=== PATIENT | female | born 1935 | race Caucasian/White ===

== ENCOUNTER 2017-11-04 11:22 | Inpatient (IN) | payer MEDICARE ==
[2017-11-04 11:30] VITALS: BMI 25.6
[2017-11-04 12:54] LABS: BASO # 0.1 K/uL (0.0-0.2); BASO % 0.9 % (0.0-2.0); EOS # 0.1 K/uL (0.0-0.7); EOS % 2.1 % (0.0-4.0); HEMOGLOBIN 11.8 g/dL (11.0-16.0); LYMPH # 1.4 K/uL (1.0-4.3); LYMPH % 20.7 % (20.0-40.0); MEAN CELL VOLUME 86.2 fL (81.0-99.0); MEAN CORPUSCULAR HEMOGLOBIN 28.9 pg (27.0-31.0); MEAN CORPUSCULAR HGB CONC 33.6 g/dL (33.0-37.0); MEAN PLATELET VOLUME 8.6 fL (7.2-11.7); MONO # 0.5 K/uL (0.0-0.8); MONO % 6.6 % (0.0-10.0); NEUT # 4.9 K/uL (1.8-7.0); NEUT % 69.7 % (50.0-75.0); RBC 4.08 Mil/uL (3.80-5.20); RED CELL DISTRIBUTION WIDTH 16.1 % (11.5-14.5)
[2017-11-04 13:07] LABS: ALBUMIN 4.1 g/dL (3.5-5.0); CALCIUM 9.3 mg/dl (8.6-10.4); GFR AFRICAN-AMERICAN > 60; GFR NON-AFRICAN AMERICAN 60
[2017-11-04 13:10] LABS: ALT/SGPT 16 U/L (9-52); AST/SGOT 35 U/L (14-36); BLOOD UREA NITROGEN 21 mg/dL (7-17)
[2017-11-04 13:21] LABS: B-TYPE NATRIURETIC PEPTIDE 87.8 pg/mL (0-900); CK-MB 0.52 ng/mL (0.0-3.38)
--- NOTE | 2017-11-04 13:26 | C.PDOC ---
History Of Present Illness 82 y/o female presents to ED with c/o cough, congestion and "low grade fever" for 1 week. Patient states she has used home remedies with no improvement. TOday daughter notes pt has a decrease appetite associated with weakness which prompted visit to ED. Pt states she sometimes feels a "wheeze" and has a headache. Also notes she has right eye pain unchanged from Cataract surgery on 10/2017. Patient denies chest pain, sob, nausea, vomiting or any other complaints at this time. Time Seen by Provider: 11/04/17 12:09 Chief Complaint (Nursing): Cough, Cold, Congestion History Per: Patient History/Exam Limitations: no limitations Onset/Duration Of Symptoms: Days Current Symptoms Are (Timing): Still Present Associated Symptoms: Fever, Cough, Nasal Congestion Past Medical History Reviewed: Historical Data, Nursing Documentation, Vital Signs Vital Signs: Last Vital Signs Temp 98.6 F 11/04/17 17:10 Pulse 86 11/04/17 17:10 Resp 20 11/04/17 17:10 BP 171/94 H 11/04/17 17:10 Pulse Ox 97 11/04/17 17:15 - Medical History PMH: Arthritis, CHF, Dementia, HTN, Hypercholesterolemia, Hyperlipidemia, Seizures Surgical History: Cholecystectomy - [facility] Procedures EXERCISE TRMT MUSCULOSK LOW BACK/LE W ASSIST EQUIP (07/23/15) GAIT TRAINING/AMBULAT TREATMENT USING ASSIST EQUIPMENT (07/23/15) GROOMING/PERSONAL HYGIENE TREATMENT USING ASSIST EQUIPMENT (07/23/15) Family History: States: No Known Family Hx - Social History Hx Tobacco Use: No Hx Alcohol Use: No Hx Substance Use: No - Immunization History Hx Tetanus Toxoid Vaccination: Yes Hx Influenza Vaccination: Yes Hx Pneumococcal Vaccination: Yes Review Of Systems Constitutional: Positive for: Fever. Negative for: Chills ENT: Positive for: Nose Congestion Cardiovascular: Negative for: Chest Pain Respiratory: Positive for: Cough. Negative for: Shortness of Breath Gastrointestinal: Negative for: Nausea, Vomiting Skin: Negative for: Rash Physical Exam - Physical Exam Appears: Non-toxic, No Acute Distress, Other (Occasional dry cough) Skin: Warm, Dry, No Rash Head: Atraumatic, Normacephalic Eye(s): bilateral: EOMI, Other ((+) b/l haziness , decreased reactivity) Ear(s): Bilateral: Normal Nose: Normal Oral Mucosa: Moist Throat: Normal, No Erythema, No Exudate Neck: Normal ROM, Supple Chest: Symmetrical Cardiovascular: Rhythm Regular Respiratory: Normal Breath Sounds, No Accessory Muscle Use, No Rales, No Rhonchi , No Wheezing Gastrointestinal/Abdominal: Soft, No Tenderness, No Guarding, No Rebound Neurological/Psych: Oriented x3, Normal Speech, Normal Cognition ED Course And Treatment - Laboratory Results Result Diagrams: 11/04/17 12:51 11/04/17 12:51 ECG: Interpreted By Me, Viewed By Me ECG Rhythm: Sinus Rhythm, Nonspecific Changes Rate From EC (BPM) O2 Sat by Pulse Oximetry: 97 (RA) Pulse Ox Interpretation: Normal - Other Rad CXR X-Ray: Viewed By Me, Read By Radiologist Interpretation: PROCEDURE: CHEST RADIOGRAPH, 1 VIEW. HISTORY: SOB. COMPARISON: Comparison chest 07/11/2016. FINDINGS: LUNGS: Poor inspiration with low lung volumes, crowded bronchovascular markings and mild bibasilar atelectasis. PLEURA: No pneumothorax or pleural fluid seen. CARDIOVASCULAR: . Heart appears mildly enlarged. . Apparent manager monitoring device overlying the left cardiac border. OSSEOUS STRUCTURES: No significant abnormalities. VISUALIZED UPPER ABDOMEN: Normal. OTHER FINDINGS: None. IMPRESSION: No active disease. - CT Scan/US CT head w/o contrast Other Rad Studies (CT/US): Read By Radiologist, Radiology Report Reviewed CT/US Interpretation: PROCEDURE: CT HEAD WITHOUT CONTRAST. HISTORY: R/O Bleed. COMPARISON: Comparison made with CT scan brain dated 07/11/2016. TECHNIQUE: Axial computed tomography images were obtained through the head/ brain without intravenous contrast. Radiation dose: Total exam DLP = mGy-cm. This CT exam was performed using one or more of the following dose reduction techniques: Automated exposure control, adjustment of the mA and/or kV according to patient size, and/or use of iterative reconstruction technique. FINDINGS: HEMORRHAGE: No acute parenchymal, subarachnoid or extra-axial hemorrhage. BRAIN: Significant diffuse - confluent chronic white matter ischemic changes again seen extending peripherally into the deep and subcortical white matter both cerebral hemispheres. The there also appear to be a more discrete scattered deep and subcortical white matter as well as bilateral basal nuclei chronic lacunar-type infarcts. . There are scattered small bilateral cerebellar lacunar type infarcts also noted Note the possibility of a small hyperacute infarct not excluded. Clinical correlation with history recommended. Exuberant and dense bilateral basal ganglia calcifications again noted. Moderate to significant central volume loss evidenced by disproportionate enlargement of the ventricles compared the sulci. Vascular calcifications are present. VENTRICLES: Unremarkable. No hydrocephalus. CALVARIUM: Unremarkable. PARANASAL SINUSES: Moderate mucosal thickening within the ethmoid air complex extending superiorly into the frontal sinus. There is also mild to moderate mucosal thickening seen in the right maxillary antrum with questionable small fluid level right maxillary antrum. There is also near complete opacification right chamber sphenoid sinus. MASTOID AIR CELLS: Unremarkable as visualized. No inflammatory changes. OTHER FINDINGS: Re- demonstrated are changes of left-sided cataract surgery. IMPRESSION: No acute intracranial hemorrhage. Significant diffuse - confluent chronic white matter ischemic changes again seen extending peripherally into the deep and subcortical white matter both cerebral hemispheres. The there also appear to be a more discrete scattered deep and subcortical white matter as well as bilateral basal nuclei chronic lacunar-type infarcts. . There are scattered small bilateral cerebellar lacunar type infarcts also noted Note the possibility of a small hyperacute infarct not excluded. Clinical correlation with history recommended. Wake. Moderate to significant central volume loss evidenced by disproportionate enlargement of the ventricles compared the sulci. Progress Note: ECG ordered. IV fluids and Azithromycin administered. D/w , instructed patient to be admitted under Dr. Mercer. Case d/w Dr. Mercer agreed with plan of admission. Disposition - Disposition Disposition: HOSPITALIZED Disposition Time: 15:00 Condition: STABLE - Clinical Impression Clinical Impression: Bronchitis, Dehydration, Headache - PA / COMMERCIAL OR INSTITUTIONAL CLEANER / Resident Statement MD/DO has reviewed & agrees with the documentation as recorded. - Scribe Statement The provider has reviewed the documentation as recorded by the Afia Erickson All medical record entries made by the Afia were at my direction and personally dictated by me. I have reviewed the chart and agree that the record accurately reflects my personal performance of the history, physical exam, medical decision making, and the department course for this patient. I have also personally directed, reviewed, and agree with the discharge instructions and disposition.
--- NOTE | 2017-11-04 14:00 | CT ---
PROCEDURE: CT HEAD WITHOUT CONTRAST. HISTORY: R/O Bleed COMPARISON: Comparison made with CT scan brain dated 07/11/2016 TECHNIQUE: Axial computed tomography images were obtained through the head/brain without intravenous contrast. Radiation dose: Total exam DLP = mGy-cm. This CT exam was performed using one or more of the following dose reduction techniques: Automated exposure control, adjustment of the mA and/or kV according to patient size, and/or use of iterative reconstruction technique. FINDINGS: HEMORRHAGE: No acute parenchymal, subarachnoid or extra-axial hemorrhage. BRAIN: Significant diffuse - confluent chronic white matter ischemic changes again seen extending peripherally into the deep and subcortical white matter both cerebral hemispheres. The there also appear to be a more discrete scattered deep and subcortical white matter as well as bilateral basal nuclei chronic lacunar-type infarcts. . There are scattered small bilateral cerebellar lacunar type infarcts also noted Note the possibility of a small hyperacute infarct not excluded. Clinical correlation with history recommended. Exuberant and dense bilateral basal ganglia calcifications again noted. Moderate to significant central volume loss evidenced by disproportionate enlargement of the ventricles compared the sulci. Vascular calcifications are present. VENTRICLES: Unremarkable. No hydrocephalus. CALVARIUM: Unremarkable. PARANASAL SINUSES: Moderate mucosal thickening within the ethmoid air complex extending superiorly into the frontal sinus. There is also mild to moderate mucosal thickening seen in the right maxillary antrum with questionable small fluid level right maxillary antrum. There is also near complete opacification right chamber sphenoid sinus. MASTOID AIR CELLS: Unremarkable as visualized. No inflammatory changes. OTHER FINDINGS: Re- demonstrated are changes of left-sided cataract surgery. IMPRESSION: No acute intracranial hemorrhage. Significant diffuse - confluent chronic white matter ischemic changes again seen extending peripherally into the deep and subcortical white matter both cerebral hemispheres. The there also appear to be a more discrete scattered deep and subcortical white matter as well as bilateral basal nuclei chronic lacunar-type infarcts. . There are scattered small bilateral cerebellar lacunar type infarcts also noted Note the possibility of a small hyperacute infarct not excluded. Clinical correlation with history recommended. Wake Moderate to significant central volume loss evidenced by disproportionate enlargement of the ventricles compared the sulci.
--- NOTE | 2017-11-04 14:35 | RAD ---
PROCEDURE: CHEST RADIOGRAPH, 1 VIEW HISTORY: SOB COMPARISON: Comparison chest 07/11/2016. FINDINGS: LUNGS: Poor inspiration with low lung volumes, crowded bronchovascular markings and mild bibasilar atelectasis PLEURA: No pneumothorax or pleural fluid seen. CARDIOVASCULAR: . Heart appears mildly enlarged. . Apparent cardiac cath tech device overlying the left cardiac border. OSSEOUS STRUCTURES: No significant abnormalities. VISUALIZED UPPER ABDOMEN: Normal. OTHER FINDINGS: None. IMPRESSION: No active disease.
[2017-11-04] MEDS ORDERED: Azithromycin 500mg/250ML NS 500 MG/250 ML BAG IV SCH (15:00)
[2017-11-04] MEDS ORDERED: Sodium Chloride 0.9% 1,000 ML ONE (15:09)
[2017-11-04] MEDS: Sodium Chloride 0.9% 1,000 ML IV SCH (15:14)
[2017-11-04 16:45] LABS: SQUAMOUS EPITHIAL 2 /hpf (0-5); URINE BACTERIA OCC (<OCC); URINE BILIRUBIN NEGATIVE (NEGATIVE); URINE BLOOD NEGATIVE (NEGATIVE); URINE CLARITY Clear (Clear); URINE COLOR Colorless (YELLOW); URINE GLUCOSE (UA) NORMAL (Normal); URINE LEUKOCYTE ESTERASE TRACE Leu/uL (Negative); URINE PROTEIN NEGATIVE (NEGATIVE); URINE UROBILINOGEN NORMAL mg/dL (0.2-1.0)
[2017-11-04 18:07] VITALS: RESP 20
--- NOTE | 2017-11-04 19:25 | CP.PCM.HP ---
History of Present Illness - History of Present Illness History of Present Illness: 82 years old female brought by the family to the ED complaining of generalized weakness this AM. She has been having a productive cough for the past 7 days, with poor appetite. In the ED a CT scan of the head did not show any acute change. A CXR did not show any infiltrate. She was given IVF and IV Zithromax with some improvement of her weakness. She is known to have a NIDDM, a seizures disorders, a HPTN, a CAD, a senile dementia, a hypercholesterolemia. Present on Admission - Present on Admission Any Indicators Present on Admission: No Review of Systems - EENT Nose/Mouth/Throat: Nasal Discharge - Respiratory Respiratory: Cough, Wheezing - Musculoskeletal Musculoskeletal: Muscle Weakness - Neurological Neurological: Confusion, Weakness Past Patient History - Infectious Disease Hx of Infectious Diseases: None - Tetanus Immunizations Tetanus Immunization: Unknown - Past Medical History & Family History Past Medical History?: Yes - Past Social History Smoking Status: Never Smoked Alcohol: None Home Situation {Lives}: With Family Domestic Violence: Negative - CARDIAC Hx Congestive Heart Failure: Yes Hx Hypercholesterolemia: Yes Hx Hypertension: Yes - PULMONARY Hx Respiratory Disorders: No - NEUROLOGICAL Hx Dementia: Yes Hx Seizures: Yes - HEENT Hx HEENT Problems: Yes Hx Cataracts: Yes (Bilat eyes) Hx Glaucoma: Yes - RENAL Hx Chronic Kidney Disease: No - ENDOCRINE/METABOLIC Hx Endocrine Disorders: Yes Hx Diabetes Mellitus Type 2: Yes - HEMATOLOGICAL/ONCOLOGICAL Hx Blood Disorders: No - INTEGUMENTARY Hx Dermatological Problems: No - MUSCULOSKELETAL/RHEUMATOLOGICAL Hx Arthritis: Yes - GASTROINTESTINAL Hx Gastrointestinal Disorders: No - GENITOURINARY/GYNECOLOGICAL Hx Genitourinary Disorders: No - PSYCHIATRIC Hx Substance Use: No - SURGICAL HISTORY Hx Cholecystectomy: Yes - ANESTHESIA Hx Anesthesia: Yes Meds Allergies/Adverse Reactions: Allergies Allergy/AdvReac Type Severity Reaction Status Date / Time No Known Allergies Allergy Verified 11/04/17 11:29 Physical Exam - Constitutional Appears: No Acute Distress, Confused - Head Exam Head Exam: NORMAL INSPECTION - Eye Exam Eye Exam: Normal appearance - ENT Exam ENT Exam: Normal Exam - Neck Exam Neck exam: Positive for: Normal Inspection - Respiratory Exam Respiratory Exam: Clear to Auscultation Bilateral, NORMAL BREATHING PATTERN - Cardiovascular Exam Cardiovascular Exam: REGULAR RHYTHM, Systolic Murmur - GI/Abdominal Exam GI & Abdominal Exam: Normal Bowel Sounds, Soft - Rectal Exam Rectal Exam: Deferred - Extremities Exam Extremities exam: Positive for: normal inspection - Back Exam Back exam: NORMAL INSPECTION - Neurological Exam Neurological exam: Alert - Psychiatric Exam Psychiatric exam: Anxious - Skin Skin Exam: Dry, Intact, Normal Color, Warm Results - Vital Signs Recent Vital Signs: Last Vital Signs Temp 98.6 F 11/04/17 17:10 Pulse 86 11/04/17 17:10 Resp 20 11/04/17 17:10 BP 171/94 H 11/04/17 17:10 Pulse Ox 97 11/04/17 18:27 - Labs Result Diagrams: 11/04/17 12:51 11/04/17 12:51 Labs: Laboratory Results - last 24 hr 11/04/17 11/04/17 11/04/17 12:51 12:51 16:39 WBC 7.0 RBC 4.08 Hgb 11.8 Hct 35.2 MCV 86.2 MCH 28.9 MCHC 33.6 RDW 16.1 H Plt Count 241 MPV 8.6 Neut % (Auto) 69.7 Lymph % (Auto) 20.7 Ransom % (Auto) 6.6 Eos % (Auto) 2.1 Baso % (Auto) 0.9 Neut # (Auto) 4.9 Lymph # (Auto) 1.4 Ransom # (Auto) 0.5 Eos # (Auto) 0.1 Baso # (Auto) 0.1 Sodium 144 Potassium 4.7 Chloride 105 Carbon Dioxide 25 Anion Gap 19 BUN 21 H Creatinine 0.9 Est GFR ( Amer) > 60 Est GFR (Non-Af Amer) 60 Random Glucose 98 Calcium 9.3 Total Bilirubin 0.7 AST 35 ALT 16 Alkaline Phosphatase 131 H Total Creatine Kinase 46 CK-MB (Mass) 0.52 Troponin I < 0.0120 NT-Pro-B Natriuret Pep 87.8 Total Protein 8.3 Albumin 4.1 Globulin 4.2 H Albumin/Globulin Ratio 1.0 Urine Color Colorless Urine Clarity Clear Urine pH 6.0 Ur Specific [place] 1.005 Urine Protein Negative Urine Glucose (UA) Normal Urine Ketones Negative Urine Blood Negative Urine Nitrate Negative Urine Bilirubin Negative Urine Urobilinogen Normal Ur Leukocyte Esterase Trace Urine WBC (Auto) 8 H Urine RBC (Auto) 1 Ur Squamous Epith Cells 2 Ur Transition Epith Cell < 1 Urine Bacteria Occ H Assessment & Plan (1) Dehydration Assessment and Plan: IVF Status: Acute (2) Bronchitis Assessment and Plan: IV Zithromax. Status: Acute (3) Non-insulin dependent type 2 diabetes mellitus Assessment and Plan: To continue Glipizide. Status: Acute Decision To Admit - Pt Status Changed To: Hospital Disposition Of: Observation - . Bed Request Type: Regular Admitting Physician: Jonh Mercer
[2017-11-04] MEDS ORDERED: guaiFENesin 200 mg/10 ml Syrup UD PO PRN (19:31)
[2017-11-04] MEDS: (Novolog) Insulin Aspart, Recombinant 100 u/ml 10 ml vial SC SCH (21:39)
[2017-11-04] MEDS: TRAVATAN Z 0.004% EYE DROPS OU SCH (21:40)
[2017-11-05] MEDS: Sodium Chloride 0.9% 1,000 ML IV SCH ×3 (00:17→15:11)
[2017-11-05] MEDS: (Novolog) Insulin Aspart, Recombinant 100 u/ml 10 ml vial SC SCH ×4 (08:04→21:18)
[2017-11-05] MEDS: Enoxaparin 40 mg Syringe SC SCH (11:07)
[2017-11-05] MEDS: DUREZOL 0.05% OD SCH ×3 (11:09→17:05)
--- NOTE | 2017-11-05 17:57 | CP.PCM.PN ---
Subjective - Date & Time of Evaluation Date of Evaluation: 11/05/17 Time of Evaluation: 17:54 - Subjective Subjective: Patient has episodes of hypoglycemia. Will discontinue Glipizide. Objective - Vital Signs/Intake and Output Vital Signs (last 24 hours): Temp Pulse Resp BP Pulse Ox 98.0 F 78 20 170/84 H 98 11/05/17 15:00 11/05/17 15:00 11/05/17 15:00 11/05/17 15:00 11/05/17 15:00 Intake and Output: 11/05/17 11/05/17 06:59 18:59 Intake Total 1530 1200 Balance 1530 1200 - Medications Medications: Current Medications Acetaminophen (Tylenol 325mg Tab) 650 mg PO Q6 PRN PRN Reason: Pain, moderate (4-7) Amlodipine Besylate (Norvasc) 2.5 mg PO DAILY [facility] Last Admin: 11/05/17 11:07 Dose: 2.5 mg Aspirin (Aspirin Chewable) 81 mg PO DAILY [facility] Last Admin: 11/05/17 11:07 Dose: 81 mg Docusate Sodium (Colace) 100 mg PO BID [facility] Last Admin: 11/05/17 17:04 Dose: 100 mg Donepezil HCl (Aricept) 10 mg PO HS [facility] Last Admin: 11/04/17 21:23 Dose: 10 mg Ezetimibe (Zetia) 10 mg PO DAILY [facility] Last Admin: 11/05/17 11:07 Dose: 10 mg Enoxaparin Sodium (Lovenox) 40 mg SC DAILY [facility] Last Admin: 11/05/17 11:07 Dose: 40 mg Glipizide (Glucotrol) 5 mg PO BID [facility] Last Admin: 11/05/17 17:05 Dose: Not Given Guaifenesin (Robitussin) 200 mg PO Q6H PRN PRN Reason: Cough and congestion Home Med (Patient's Own Drops) 1 drop OD TID [facility] Last Admin: 11/05/17 17:05 Dose: 1 drop Home Med (Patient's Own Drops) 1 drop OU HS [facility] Last Admin: 11/04/17 21:40 Dose: 1 drop Sodium Chloride (Sodium Chloride 0.9%) 1,000 mls @ 100 mls/hr IV .Q10H [facility] Last Admin: 11/05/17 15:11 Dose: 100 mls/hr Azithromycin (Zithromax 500mg In Ns Addvantage) 500 mg in 250 mls @ 166.667 mls /hr IV STAT [facility] PRN Reason: Protocol Last Admin: 11/04/17 15:29 Dose: 166.667 mls/hr Levetiracetam (Keppra) 500 mg PO BID [facility] Last Admin: 11/05/17 17:04 Dose: 500 mg Losartan Potassium (Cozaar) 100 mg PO DAILY [facility] Last Admin: 11/05/17 11:06 Dose: 100 mg - Labs Labs: 11/04/17 12:51 11/04/17 12:51 - Constitutional Appears: No Acute Distress, Chronically Ill - Head Exam Head Exam: NORMOCEPHALIC - Eye Exam Eye Exam: Normal appearance - ENT Exam ENT Exam: Normal Exam - Neck Exam Neck Exam: Normal Inspection - Respiratory Exam Respiratory Exam: Clear to Ausculation Bilateral, NORMAL BREATHING PATTERN - Cardiovascular Exam Cardiovascular Exam: Irregular Rhythm - GI/Abdominal Exam GI & Abdominal Exam: Soft, Normal Bowel Sounds - Rectal Exam Rectal Exam: Deferred - Exam Exam: NORMAL INSPECTION - Extremities Exam Extremities Exam: Normal Inspection - Back Exam Back Exam: NORMAL INSPECTION - Neurological Exam Neurological Exam: Alert, Awake - Psychiatric Exam Psychiatric exam: Anxious - Skin Skin Exam: Dry, Intact, Normal Color, Warm Assessment and Plan (1) Dehydration Status: Acute (2) Bronchitis Status: Acute (3) Non-insulin dependent type 2 diabetes mellitus Assessment & Plan: Patient had episodes of hypoglycemia. To discontinue Glipizide Status: Acute
[2017-11-05] MEDS: TRAVATAN Z 0.004% EYE DROPS OU SCH (21:15)
[2017-11-06] MEDS: (Novolog) Insulin Aspart, Recombinant 100 u/ml 10 ml vial SC SCH ×4 (08:25→21:34)
[2017-11-06] MEDS: Enoxaparin 40 mg Syringe SC SCH (09:34)
[2017-11-06] MEDS: DUREZOL 0.05% OD SCH ×3 (09:35→17:08)
[2017-11-06] MEDS: TRAVATAN Z 0.004% EYE DROPS OU SCH (21:27)
[2017-11-07] MEDS: (Novolog) Insulin Aspart, Recombinant 100 u/ml 10 ml vial SC SCH ×2 (08:20→17:05)
[2017-11-07] MEDS: Enoxaparin 40 mg Syringe SC SCH (10:07)
[2017-11-07] MEDS: DUREZOL 0.05% OD SCH ×2 (10:08→17:16)
[2017-11-07 11:06] LABS: BASO % 0.7 % (0.0-2.0); EOS # 0.3 K/uL (0.0-0.7); EOS % 4.8 % (0.0-4.0); HEMOGLOBIN 12.2 g/dL (11.0-16.0); LYMPH # 1.1 K/uL (1.0-4.3); LYMPH % 20.1 % (20.0-40.0); MEAN CELL VOLUME 85.3 fL (81.0-99.0); MEAN CORPUSCULAR HEMOGLOBIN 29.4 pg (27.0-31.0); MEAN CORPUSCULAR HGB CONC 34.4 g/dL (33.0-37.0); MEAN PLATELET VOLUME 8.7 fL (7.2-11.7); MONO # 0.4 K/uL (0.0-0.8); MONO % 8.3 % (0.0-10.0); NEUT # 3.5 K/uL (1.8-7.0); NEUT % 66.1 % (50.0-75.0); NRBC % 0.1 % (0.0-2.0); RBC 4.16 Mil/uL (3.80-5.20); WHITE BLOOD COUNT 5.3 K/uL (4.8-10.8)
[2017-11-07 11:09] LABS: CALCIUM 8.7 mg/dl (8.6-10.4)
--- NOTE | 2017-11-07 15:37 | CP.PCM.PN ---
Subjective - Date & Time of Evaluation Date of Evaluation: 11/07/17 Time of Evaluation: 15:38 - Subjective Subjective: Alert, awake, no sob or chest pains, NAD. Objective - Vital Signs/Intake and Output Vital Signs (last 24 hours): Temp Pulse Resp BP Pulse Ox 98.2 F 65 20 144/82 95 11/07/17 08:01 11/07/17 08:01 11/07/17 08:01 11/07/17 13:45 11/07/17 08:01 Intake and Output: 11/07/17 11/07/17 06:59 18:59 Intake Total 270 500 Balance 270 500 - Medications Medications: Current Medications Acetaminophen (Tylenol 325mg Tab) 650 mg PO Q6 PRN PRN Reason: Pain, moderate (4-7) Amlodipine Besylate (Norvasc) 10 mg PO DAILY [facility] Last Admin: 11/07/17 10:07 Dose: 10 mg Aspirin (Aspirin Chewable) 81 mg PO DAILY [facility] Last Admin: 11/07/17 10:07 Dose: 81 mg Docusate Sodium (Colace) 100 mg PO BID [facility] Last Admin: 11/07/17 10:07 Dose: 100 mg Donepezil HCl (Aricept) 10 mg PO HS [facility] Last Admin: 11/06/17 21:27 Dose: 10 mg Ezetimibe (Zetia) 10 mg PO DAILY [facility] Last Admin: 11/07/17 10:07 Dose: 10 mg Enoxaparin Sodium (Lovenox) 40 mg SC DAILY [facility] Last Admin: 11/07/17 10:07 Dose: 40 mg Guaifenesin (Robitussin) 200 mg PO Q6H PRN PRN Reason: Cough and congestion Home Med (Patient's Own Drops) 1 drop OD TID [facility] Last Admin: 11/07/17 10:08 Dose: 1 drop Home Med (Patient's Own Drops) 1 drop OU HS [facility] Last Admin: 11/06/17 21:27 Dose: 1 drop Insulin Aspart (Novolog) 0 unit SC [facility] PRN Reason: Protocol Last Admin: 11/07/17 08:20 Dose: Not Given Levetiracetam (Keppra) 500 mg PO BID [facility] Last Admin: 11/07/17 10:07 Dose: 500 mg Losartan Potassium (Cozaar) 100 mg PO DAILY [facility] Last Admin: 11/07/17 10:07 Dose: 100 mg - Labs Labs: 11/07/17 10:44 11/07/17 10:44 Assessment and Plan - Assessment and Plan (Free Text) Assessment: Patient is seen and examined, alert, oriented, sitting out of bed in the chair. Denies sob or chest pains, no wheezing. Blood pressure 144/70 now, no acute distress. Seen by DR Mercer, cleared for discharge home today. Advised to continue present meds and follow up in the office in 1 week.
--- NOTE | 2017-11-07 15:44 | PCM.HF ---
Heart Failure Core Measure - Heart Failure Ejection Fraction: 40 % or Greater (EF 65-70%) PHAN Inhibitor Prescribed: No Contraindication/Reason for not providing: ON COZAAR Beta-Shanique Prescribed: None Contraindication/Reason for not providing: EF >40% Angiotensin II Receptor Shanique Prescribed: Yes AnticoagulationTherapy for Atrial Fibrillation/Atrialflutter: No Contraindication/Reason for not providing: NO AFIB Aldosterone Antagonist Prescribed: No Contraindication/Reason for not providing: EF >40% Hydralazine Nitrate Prescribed: No Contraindication/Reason for not providing: EF >40% Implantable Cardioverter Defibrillator Therapy: No Contraindication/Reason for not providing: EF>40% Cardiac Resynchronization Therapy Prescribed: No Contraindication/Reason for not providing: not indicated - Follow up Will be discharged to: Home Follow Up Date (must be within 7 days from discharge): 11/14/17 Follow Up Time: 09:00
--- NOTE | 2017-11-07 16:04 | CARD ---
APPROVED REPORT EKG Measurement Heart [id number] <Conclusion> Sinus rhythm with 1st degree AV block Left axis deviation Moderate voltage criteria for LVH, may be normal variant Possible Lateral infarct, age undetermined Abnormal ECG
[2017-11-07 16:35] VITALS: BP 154/80; PULSE 73; TEMP 98.1; O2SAT 96
--- NOTE | 2017-11-07 19:12 | CP.PCM.PN ---
Subjective - Date & Time of Evaluation Date of Evaluation: 11/07/17 Time of Evaluation: 19:09 - Subjective Subjective: Patient has no complaint. BP: 144/88 Afebrile. No more hypoglycemic episodes. Will discharge home on Metformin 875 mg PO BID, Losartan 100 mg PO qd and Amlodipine 10 mg PO qd, and discontinue Glipizide. Objective - Vital Signs/Intake and Output Vital Signs (last 24 hours): Temp Pulse Resp BP Pulse Ox 98.1 F 73 20 154/80 H 96 11/07/17 16:00 11/07/17 16:00 11/07/17 16:00 11/07/17 16:00 11/07/17 16:00 Intake and Output: 11/07/17 11/08/17 18:59 06:59 Intake Total 500 Balance 500 - Labs Labs: 11/07/17 10:44 11/07/17 10:44 - Constitutional Appears: No Acute Distress, Confused - Head Exam Head Exam: NORMAL INSPECTION - Eye Exam Eye Exam: Normal appearance - ENT Exam ENT Exam: Normal Exam - Neck Exam Neck Exam: Normal Inspection - Respiratory Exam Respiratory Exam: Clear to Ausculation Bilateral - Cardiovascular Exam Cardiovascular Exam: REGULAR RHYTHM - GI/Abdominal Exam GI & Abdominal Exam: Soft, Normal Bowel Sounds - Rectal Exam Rectal Exam: Deferred - Extremities Exam Extremities Exam: Normal Inspection - Back Exam Back Exam: NORMAL INSPECTION - Neurological Exam Neurological Exam: Alert, Awake, Normal Gait - Psychiatric Exam Psychiatric exam: Anxious - Skin Skin Exam: Dry, Intact, Normal Color, Warm Assessment and Plan (1) Dehydration Status: Resolved (2) Bronchitis Status: Resolved (3) Non-insulin dependent type 2 diabetes mellitus Status: Chronic
--- NOTE | 2017-11-08 17:37 | CP.PCM.PN ---
Subjective - Date & Time of Evaluation Date of Evaluation: 11/07/17 Time of Evaluation: 11:00 - Subjective Subjective: Awake, alert, no sob or chest pains, NAD. Objective - Vital Signs/Intake and Output Vital Signs (last 24 hours): Temp Pulse Resp BP Pulse Ox 98.1 F 73 20 154/80 H 96 11/07/17 16:00 11/07/17 16:00 11/07/17 16:00 11/07/17 16:00 11/07/17 16:00 - Labs Labs: 11/07/17 10:44 11/07/17 10:44 Assessment and Plan - Assessment and Plan (Free Text) Assessment: Patient is seen and examined. Alert, awake, no sob or chest pains. Seen by DR Mercer , advised to discharge home on present meds. Patient is advised to follow up with PMD in 1 week.
== END 2017-11-07 18:20 | disposition home or self-care (01) | DRG 203 ==
LOC: C.ER 11:22 → C.9E 14:49 → C.3T 15:54 → OBSVTOIN 11-05 16:52
PROVIDERS: ADMIT Internal Medicine Cardiovascular Disease; ATTEND Internal Medicine Cardiovascular Disease
DX: J20.9 Acute bronchitis, unspecified (principal); E86.0 Dehydration; E11.649 Type 2 diabetes mellitus with hypoglycemia without coma; I11.9 Hypertensive heart disease without heart failure; I51.7 Cardiomegaly; I25.10 Atherosclerotic heart disease of native coronary artery without angina pectoris; G40.909 Epilepsy, unspecified, not intractable, without status epilepticus; F03.90 Unspecified dementia, unspecified severity, without behavioral disturbance, psychotic disturbance, mood disturbance, and anxiety; M19.90 Unspecified osteoarthritis, unspecified site; E78.5 Hyperlipidemia, unspecified; E78.00 Pure hypercholesterolemia, unspecified; Z79.84 Long term (current) use of oral hypoglycemic drugs; Z98.41 Cataract extraction status, right eye

== ENCOUNTER 2018-08-27 19:12 | Inpatient (IN) | payer MEDICARE ==
[2018-08-27 19:13] VITALS: BMI 25.6
--- NOTE | 2018-08-27 20:18 | C.PDOC ---
History Of Present Illness 82 year old female is brought to the ED by her family for evaluation of knee pain and difficulty ambulating. As per family she normally walks with a walker however today for the first time noticed her left leg was almost dragging not able to move it. Patient denies fever, chills, headache, visual changes, CP, SOB, palpitations, bowel incontinence, saddle anesthesia. Time Seen by Provider: 08/27/18 20:18 Chief Complaint (Nursing): Lower Extremity Problem/Injury History Per: Patient, Family History/Exam Limitations: no limitations Onset/Duration Of Symptoms: Days Current Symptoms Are (Timing): Still Present Recent travel outside of the [place]: No Additional History Per: Patient Past Medical History Reviewed: Historical Data, Nursing Documentation, Vital Signs Vital Signs: Last Vital Signs Temp 98.9 F 08/27/18 19:35 Pulse 74 08/27/18 19:35 Resp 20 08/27/18 19:35 BP 184/92 H 08/27/18 19:35 Pulse Ox 95 08/27/18 19:35 - Medical History PMH: Arthritis, CHF, Dementia, HTN, Hypercholesterolemia, Hyperlipidemia, Seizures Denies: Chronic Kidney Disease Surgical History: Cholecystectomy - [facility] Procedures EXERCISE TRMT MUSCULOSK LOW BACK/LE W ASSIST EQUIP (07/23/15) GAIT TRAINING/AMBULAT TREATMENT USING ASSIST EQUIPMENT (07/23/15) GROOMING/PERSONAL HYGIENE TREATMENT USING ASSIST EQUIPMENT (07/23/15) Family History: States: No Known Family Hx - Social History Hx Tobacco Use: No Hx Alcohol Use: No Hx Substance Use: No - Immunization History Hx Tetanus Toxoid Vaccination: Yes Hx Influenza Vaccination: Yes Hx Pneumococcal Vaccination: Yes Review Of Systems Constitutional: Negative for: Fever, Chills Cardiovascular: Negative for: Chest Pain Respiratory: Negative for: Shortness of Breath Gastrointestinal: Negative for: Nausea, Vomiting, Abdominal Pain Musculoskeletal: Positive for: Leg Pain Skin: Negative for: Rash Neurological: Negative for: Weakness, Numbness, Headache, Dizziness Physical Exam - Physical Exam Appears: Non-toxic, No Acute Distress Skin: Warm, Dry Head: Normacephalic Eye(s): bilateral: Normal Inspection, PERRL, EOMI Oral Mucosa: Moist Teeth: Edentulous Neck: Supple Chest: Symmetrical Cardiovascular: Rhythm Regular Respiratory: No Rales, No Rhonchi, No Wheezing Gastrointestinal/Abdominal: Soft, No Tenderness, No Guarding, No Rebound Extremity: Tenderness (left knee, mild), No Deformity, No Swelling Extremity: Left: Painful To Bear Weight, Unable To Bear Weight, Bilateral: Pelvis-Stable Pulses: Left Dorsalis Pedis: Normal, Right Dorsalis Pedis: Normal Neurological/Psych: Oriented x3, Other (neg babinsky) Gait: Unable To Assess ED Course And Treatment - Laboratory Results Result Diagrams: 08/27/18 20:47 08/27/18 20:47 ECG: Interpreted By Me, Viewed By Me ECG Rhythm: Sinus Rhythm (68), 1st Degree HB, Nonspecific Changes O2 Sat by Pulse Oximetry: 95 (On RA) Pulse Ox Interpretation: Normal - Radiology CXR: Interpreted by Me, Viewed By Me CXR Interpretation: Yes: Other (loop recorder present, unchanged from 11/04/17). No: Infiltrates, Fracture, Pnemothorax - CT Scan/US CT head Other Rad Studies (CT/US): Read By Radiologist, Radiology Report Reviewed CT/US Interpretation: EXAM: CT Head without Intravenous Contrast. CLINICAL HISTORY: R/o bleed. TECHNIQUE: Axial computed tomography images of the head/brain without intravenous contrast. 0.00 mGy-cm. COMPARISON: Comparison is made to previous examination dated 11/04/2017. FINDINGS: BRAIN. No acute intraparenchymal hemorrhage. No mass lesion. No CT evidence for acute territorial infarct. No midline shift or extra-axial collections. There is mild diffuse age-appropriate cerebral/cerebellar atrophy. There are bilateral periventricular and subcortical white matter hypolucencies compatible with mild chronic microvascular disease. Dense calcification is again seen within the basal ganglia bilaterally; usually an idiopathic finding. VENTRICLES: No hydrocephalus. VASCULAR: Atherosclerotic vascular plaquing is seen within the left vertebral artery and carotid siphons bilaterally. ORBITS: The orbits are unremarkable. SINUSES AND MASTOIDS: The paranasal sinuses and mastoid air cells are clear. BONES: No fracture. SOFT TISSUES: Unremarkable. IMPRESSION: 1. No acute intracranial abnormality. 2. Mild diffuse age appropriate cerebral/cerebellar atrophy. 3. Mild chronic microvascular disease. 4. Dense calcification in the basal ganglia bilaterally; usually an idiopathic finding. 5. Atherosclerotic vascular plaquing within the left vertebral artery and bilateral carotid siphons. 6. No significant interval change. . Electronically signed on Aug 27, 2018 10:27:28 PM EST by: Jonh Tena M.D., JOSE Certified By ABR & CBCCT. Fellowship Trained MRI and CT Specialist. CT hip Other Rad Studies (CT/US): Read By Radiologist, Radiology Report Reviewed CT/US Interpretation: EXAM: CT left Hip, without IV contrast. CLINICAL HISTORY: Left hip pain. TECHNIQUE: Axial images were acquired through the left hip without IV contrast. Reformatted images were reviewed. 0.00 mGy-cm. COMPARISON: None provided. FINDINGS: BONES: No acute fracture or aggressive appearing osseous lesion. JOINTS: No dislocation. The joint spaces are normal. SOFT TISSUES: The soft tissues are unremarkable. Extensive atherosclerotic vascular plaquing is noted. A small 1.2 cm calcified degenerating uterine fibroid is noted in the posterior fundus. Incidental note is made of diverticulosis coli in the visualized lower descending and sigmoid colon. Additionally, there is subtle pericolonic haziness in this region suspicious for acute diverticulitis. IMPRESSION: 1. No acute osseous abnormality. 2. Incidental discovery of acute diverticulitis in the lower descending-upper sigmoid colon. 3. Extensive atherosclerotic vascular plaquing. 4. Incidental discovery is made of a 1.2 cm calcified degenerating uterine fibroid in the right posterior fundus. . Electronically signed on Aug 27, 2018 10:40:16 PM EST by: Jonh Tena M.D., JOSE Certified By ABR & CBCCT. Fellowship Trained MRI and CT Specialist. CT lower extrem Other Rad Studies (CT/US): Read By Radiologist, Radiology Report Reviewed CT/US Interpretation: EXAM: CT left Knee, without IV contrast. CLINICAL HISTORY: Left knee pain. TECHNIQUE: Axial images were acquired through the left knee without IV contrast. Reformatted images were reviewed. 0.00 mGy-cm. COMPARISON: None provided. FINDINGS: BONES: No acute fracture or aggressive appearing osseous lesion. JOINTS: No dislocation. Moderate arthritic narrowing is seen within the medial compartment. Marginal osteophyte formation arises from the medial tibial plateau. A 1.0 cm degenerative arthritic cyst is seen in the medial tibial plateau extending to the articular surface. These findings are compatible with primary osteoarthritis. SOFT TISSUES: The soft tissues are unremarkable. Extensive atherosclerotic vascular plaquing is noted within the femoral, popliteal arteries and trifurcation vessels. IMPRESSION: 1. No acute osseous abnormality. 2. Moderate primary osteoarthritic changes noted in the medial compartment. 3. Extensive atherosclerotic vascular plaquing is present. . Electronically signed on Aug 27, 2018 10:40:23 PM EST by: Jonh Tena M.D., MBA Certified By ABR & CBCCT. Fellowship Trained MRI and CT Specialist Progress Note: Plan: - CT lower extrem. - CT head. - CT pelvis. - Labs. - EKG. - CXR. - UA NIHSS Stroke Scale - Date/Time Evaluation Performed Date Performed: 08/27/18 Time Performed: 20:00 When Was NIHSS Performed: Baseline - How Severe is the Stoke Level of Consciousness: 0=Alert LOC to Questions: 0=Both comments correct LOC to commands: 0=Obeys both correctly Best Gaze: 0=Normal Visual: 0=No visual loss Facial: 0=Normal Motor Arm - Left: 0=No drift Motor Arm - Right: 0=No drift Motor Leg - Left: 1=Drift before 5 sec Motor Leg - Right: 0=No drift Limb Ataxia: 0=Absent Sensory: 0=Normal Best Language: 0=No aphasia Dysarthia: 0=Normal articulation Extinction & Inattention (Neglect): 0=Normal, no object Score: 1 Disposition Discussed With : Jonh Mercer Comment: accepted the pt on his service and took over the care at 10:52 PM Doctor Will See Patient In The: Hospital Counseled Patient/Family Regarding: Studies Performed, Diagnosis - Disposition Disposition: HOSPITALIZED Disposition Time: 20:18 Condition: FAIR Forms: [facility] (Kiswahili) - POA Present On Arrival: Poor Glycemic Control - Clinical Impression Clinical Impression: Lumbar radiculopathy, Arthritis, Joint pain, Ambulatory dysfunction - Scribe Statement The provider has reviewed the documentation as recorded by the Scribe Kal Daigle All medical record entries made by the Scribe were at my direction and personally dictated by me. I have reviewed the chart and agree that the record accurately reflects my personal performance of the history, physical exam, medical decision making, and the department course for this patient. I have also personally directed, reviewed, and agree with the discharge instructions and disposition. Decision To Admit - Pt Status Changed To: Hospital Disposition Of: Inpatient - Admit Certification Admit to Inpatient:: After my assessment, the patient will require hospitalization for at least two midnights. This is because of the severity of symptoms shown, intensity of services needed, and/or the medical risk in this patient being treated as an outpatient. - InPatient: Physician Admission Certification: I certify that this patient requires 2 or more midnights of care for the following reason:: After my assessment, the patient will require hospitalization for at least two midnights. This is because of the severity of symptoms shown, intensity of services needed, and/or the medical risk in this patient being treated as an outpatient. - . Bed Request Type: Regular Admitting Physician: Jonh Mercer Patient Diagnosis: Lumbar radiculopathy, Arthritis, Joint pain, Ambulatory dysfunction
[2018-08-27 20:49] LABS: BASO # 0.1 K/uL (0.0-0.2); BASO % 1.3 % (0.0-2.0); EOS # 0.2 K/uL (0.0-0.7); EOS % 3.7 % (0.0-4.0); HEMOGLOBIN 11.7 g/dL (11.0-16.0); LYMPH # 1.4 K/uL (1.0-4.3); LYMPH % 21.3 % (20.0-40.0); MEAN CELL VOLUME 88.6 fL (81.0-99.0); MEAN CORPUSCULAR HEMOGLOBIN 28.9 pg (27.0-31.0); MEAN CORPUSCULAR HGB CONC 32.6 g/dL (33.0-37.0); MEAN PLATELET VOLUME 8.6 fL (7.2-11.7); MONO # 0.5 K/uL (0.0-0.8); MONO % 7.8 % (0.0-10.0); NEUT # 4.4 K/uL (1.8-7.0); NEUT % 65.9 % (50.0-75.0); NRBC % 0.1 % (0.0-2.0); RBC 4.06 Mil/uL (3.80-5.20); RED CELL DISTRIBUTION WIDTH 15.7 % (11.5-14.5); WHITE BLOOD COUNT 6.6 K/uL (4.8-10.8)
[2018-08-27 21:02] LABS: ALB/GLOB RATIO 1.4 (1.0-2.1); ALT/SGPT 15 U/L (9-52); AST/SGOT 23 U/L (14-36); BLOOD UREA NITROGEN 27 mg/dL (7-17); CALCIUM 8.8 mg/dl (8.6-10.4); GFR NON-AFRICAN AMERICAN 53
[2018-08-27 21:08] LABS: PROTHROMBIN TIME 10.6 SECONDS (9.7-12.2)
[2018-08-28 06:35] LABS: FREE T4 0.88 ng/dL (0.78-2.19)
[2018-08-28] MEDS: (Novolog) Insulin Aspart, Recombinant 100 u/ml 10 ml vial SC SCH ×4 (07:36→21:37)
--- NOTE | 2018-08-28 08:06 | CT ---
Date of service: 08/27/2018 PROCEDURE: CT HEAD WITHOUT CONTRAST. HISTORY: Headache. Evaluate for hemorrhage. COMPARISON: None available. TECHNIQUE: Axial computed tomography images were obtained through the head/brain without intravenous contrast. Radiation dose: Total exam DLP = 922.16 mGy-cm. This CT exam was performed using one or more of the following dose reduction techniques: Automated exposure control, adjustment of the mA and/or kV according to patient size, and/or use of iterative reconstruction technique. FINDINGS: HEMORRHAGE: No intracranial hemorrhage. BRAIN: No mass effect or edema. Scattered focal lucencies in the subcortical and periventricular white matter suggestive for severe chronic microvascular ischemic change. Dense bilateral basal ganglia calcifications. Diffuse generalized parenchymal atrophy. Persistent focal hypodensities in the bilateral cerebellum; right greater than left suggestive for chronic infarcts. Punctate left caudate head lacunar infarct. VENTRICLES: Prominent secondary to diffuse generalized parenchymal atrophy. CALVARIUM: Unremarkable. PARANASAL SINUSES: Mild mucosal thickening of the ethmoid air cells. MASTOID AIR CELLS: Unremarkable as visualized. No inflammatory changes. OTHER FINDINGS: Intracranial arterial calcifications. IMPRESSION: Severe chronic microvascular ischemic changes. Dense bilateral basal ganglia calcifications. Diffuse generalized parenchymal atrophy. Chronic cerebellar infarcts. Punctate left caudate head lacunar infarct. If symptoms persists, consider correlation with MRI. A preliminary report was generated at 10:27 p.m. on 08/27/[address] Jonh Tena from [employer]
[2018-08-28] MEDS ORDERED: LUTEIN PO SCH (10:00)
[2018-08-28] MEDS ORDERED: [UNRECOGNIZED DRUG - OTHER] PO SCH (10:00)
[2018-08-28] MEDS ORDERED: CHOLECALCIFEROL PO SCH (10:00)
[2018-08-28] MEDS ORDERED: MULTIVIT MIN PO SCH (10:00)
[2018-08-28] MEDS ORDERED: LYCOPEN PO SCH (10:00)
[2018-08-28] MEDS: Enoxaparin 40 mg Syringe SC SCH (10:06)
--- NOTE | 2018-08-28 10:39 | CT ---
CT left hip HISTORY: Hip pain. COMPARISON: None available. Technique: Multiple contiguous axial images were performed through the left hip without the use of intravenous contrast. Subsequently, sagittal and coronal reformatted images were obtained. This CT exam was performed using one or more of the following dose reduction techniques: Automated exposure control, adjustment of the mA and/or kV according to patient size, and/or use of iterative reconstruction technique. Findings: Moderate to severe narrowing of the left hip joint space with subchondral sclerosis and mild osteophytosis. No evidence of acute displaced fracture or dislocation. Limited evaluation of the remainder of the bony pelvis demonstrates no evidence of acute displaced fracture or dislocation. Mild productive change at the pubic symphysis. Vascular calcifications. Multiple calcified fibroid lesions in the uterus. Distended urinary bladder. Colonic diverticulosis. At the level of the proximal sigmoid colon, there is some mild adjacent mesenteric fat stranding which may represent a mild and or early acute diverticulitis. Clinical correlation. Impression: 1. Degenerative changes of the left hip as described above. If pain persists, consider correlation with MRI. 2. Colonic diverticulosis with mild mesenteric fat stranding adjacent to some diverticuli at the level of the proximal sigmoid colon which may represent a mild and or early acute diverticulitis. Clinical correlation. 3. Calcified fibroid uterus. Additional findings as above. A preliminary report was generated at 10:40 pm on 08/27/[address] Jonh Tena from [employer].
--- NOTE | 2018-08-28 11:12 | CT ---
CT left knee HISTORY: Knee pain. Comparison: None available. Technique: Multiple contiguous axial images were performed through left knee without the use of intravenous contrast. Subsequently, sagittal and coronal reformatted images were obtained. This CT exam was performed using one or more of the following dose reduction techniques: Automated exposure control, adjustment of the mA and/or kV according to patient size, and/or use of iterative reconstruction technique. Findings: Severe medial compartment joint space narrowing with subchondral sclerosis. Prominent subchondral cysts and or intraosseous ganglion within the medial proximal tibia at the articular surface measuring 9 and 10 millimeters respectively. Suggestion of some osteochondral change with a 7 millimeter osteochondral abnormality along the anterior lateral femoral condyle on series 602, image 80 and series 3, image 51 with adjacent sclerosis. Though less likely underlying stress injury at this level cannot be excluded. Correlation with MRI is recommended for further evaluation if clinically indicated. Lateral subluxation of the patella. Vascular calcifications. Moderate patellofemoral joint space narrowing with subchondral sclerosis. Trace suprapatellar joint effusion. Impression: 1. Suggestion of some osteochondral change with a 7 millimeter osteochondral abnormality along the anterior lateral femoral condyle on series 602, image 80 and series 3, image 51 with adjacent sclerosis. Though less likely underlying stress injury at this level cannot be excluded. Correlation with MRI is recommended for further evaluation if clinically indicated. 2. Severe medial compartment joint space narrowing of the femorotibial joint space with subchondral sclerosis. Prominent subchondral cysts and or intraosseous ganglion within the medial proximal tibia at the articular surface measuring 9 and 10 millimeters respectively. 3. Lateral subluxation of the patella. 4. Vascular calcifications. 5. Moderate patellofemoral joint space narrowing with subchondral sclerosis. 6. Trace suprapatellar joint effusion. A preliminary report was generated at 10:40 p.m. on 08/27/[address] Jonh Tena from [employer]. This case was placed in the PA review folder.
--- NOTE | 2018-08-28 11:28 | CARD ---
APPROVED REPORT Date of service: 08/27/2018 EKG Measurement Heart [id number] <Conclusion> Sinus rhythm with 1st degree AV block Left axis deviation Moderate voltage criteria for LVH, may be normal variant Abnormal ECG
--- NOTE | 2018-08-28 12:09 | RAD ---
Date of service: 08/27/2018 PROCEDURE: CHEST RADIOGRAPH, 1 VIEW HISTORY: SOB COMPARISON: 11/04/2017. FINDINGS: LUNGS: There are low lung volumes. The lungs are clear. There is bibasilar atelectasis. PLEURA: No pneumothorax or pleural effusion. CARDIOVASCULAR: The heart is normal in size. There are aortic atherosclerotic calcifications present. A loop recorder overlies the left lower thorax. OSSEOUS STRUCTURES: Within normal limits for the patient's age. VISUALIZED UPPER ABDOMEN: Normal. OTHER FINDINGS: Surgical clips in the right upper quadrant are related to prior cholecystectomy. IMPRESSION: No active pulmonary disease.Low lung volumes may be related to poor inspiratory effort. The
[2018-08-28] MEDS ORDERED: (Novolog) Insulin Aspart, Recombinant 100 u/ml 10 ml vial ONE (12:12)
--- NOTE | 2018-08-28 19:25 | CP.PCM.HP ---
History of Present Illness - History of Present Illness History of Present Illness: This is an 82 yo female who is complaining of inability to walk for the past few days because of weakness of the left leg, pain of the left knee and left hip. She denies any fall, any loss of weight, any headache. She is known to have a hypertension, a NIDDM, a cholelithiasis, a seizures disorder, a hypercholesterolemia. Ct scan of the head revealed ischemic change with chronic lacunar infarcts of the cerebellum and the left caudate nuclei. CT scan of the left knee and left hip disclosed severe degenerative joint disease. A CXR was essentially negative. CMP, CBC, TSH, HgbA1C were within normal limits. Present on Admission - Present on Admission Any Indicators Present on Admission: No Review of Systems - Musculoskeletal Musculoskeletal: Arthralgias, Muscle Weakness Additional comments: Weakness of the left leg for the past few days, and pain of the left knee and le ft hip on walking. Past Patient History - Infectious Disease Hx of Infectious Diseases: None - Tetanus Immunizations Tetanus Immunization: Unknown - Past Medical History & Family History Past Medical History?: Yes - Past Social History Smoking Status: Never Smoked Alcohol: None Drugs: Denies Home Situation {Lives}: With Family Domestic Violence: Negative - CARDIAC Hx Congestive Heart Failure: Yes Hx Hypercholesterolemia: Yes Hx Hypertension: Yes - PULMONARY Hx Respiratory Disorders: No - NEUROLOGICAL Hx Dementia: Yes Hx Seizures: Yes - HEENT Hx HEENT Problems: Yes Hx Cataracts: Yes (Bilat eyes) Hx Glaucoma: Yes - RENAL Hx Chronic Kidney Disease: No - ENDOCRINE/METABOLIC Hx Diabetes Mellitus Type 2: Yes - HEMATOLOGICAL/ONCOLOGICAL Hx Blood Disorders: No - INTEGUMENTARY Hx Dermatological Problems: No - MUSCULOSKELETAL/RHEUMATOLOGICAL Hx Arthritis: Yes Hx Falls: Yes (2018) - GASTROINTESTINAL Hx Gastrointestinal Disorders: No - GENITOURINARY/GYNECOLOGICAL Hx Genitourinary Disorders: No - PSYCHIATRIC Hx Substance Use: No - SURGICAL HISTORY Hx Cholecystectomy: Yes - ANESTHESIA Hx Anesthesia: Yes Meds Allergies/Adverse Reactions: Allergies Allergy/AdvReac Type Severity Reaction Status Date / Time No Known Allergies Allergy Verified 11/04/17 11:29 Physical Exam - Constitutional Appears: No Acute Distress, Chronically Ill - Head Exam Head Exam: NORMAL INSPECTION - Eye Exam Eye Exam: Normal appearance - ENT Exam ENT Exam: Normal Exam - Neck Exam Neck exam: Positive for: Normal Inspection - Respiratory Exam Respiratory Exam: Clear to Auscultation Bilateral - Cardiovascular Exam Cardiovascular Exam: REGULAR RHYTHM - GI/Abdominal Exam GI & Abdominal Exam: Normal Bowel Sounds, Soft - Rectal Exam Rectal Exam: Deferred - Extremities Exam Extremities exam: Positive for: normal inspection - Back Exam Back exam: NORMAL INSPECTION - Neurological Exam Neurological exam: Abnormal Gait, Alert, CN II-XII Intact, Oriented x3, Reflexes Normal - Psychiatric Exam Psychiatric exam: Anxious - Skin Skin Exam: Dry, Intact, Normal Color, Warm Results - Vital Signs Recent Vital Signs: Last Vital Signs Temp 98.5 F 08/28/18 15:55 Pulse 71 08/28/18 15:55 Resp 20 08/28/18 15:55 BP 145/78 08/28/18 15:55 Pulse Ox 96 08/28/18 15:55 - Labs Result Diagrams: 08/27/18 20:47 08/27/18 20:47 Labs: Laboratory Results - last 24 hr 08/27/18 08/27/18 08/27/18 20:47 20:47 20:47 WBC 6.6 RBC 4.06 Hgb 11.7 Hct 36.0 MCV 88.6 D MCH 28.9 MCHC 32.6 L RDW 15.7 H Plt Count 236 MPV 8.6 Neut % (Auto) 65.9 Lymph % (Auto) 21.3 Leake % (Auto) 7.8 Eos % (Auto) 3.7 Baso % (Auto) 1.3 Neut # (Auto) 4.4 Lymph # (Auto) 1.4 Leake # (Auto) 0.5 Eos # (Auto) 0.2 Baso # (Auto) 0.1 PT 10.6 INR 1.0 APTT 30 Sodium 140 Potassium 4.2 Chloride 107 Carbon Dioxide 25 Anion Gap 13 BUN 27 H Creatinine 1.0 Est GFR ( Amer) > 60 Est GFR (Non-Af Amer) 53 POC Glucose (mg/dL) Random Glucose 119 H D Hemoglobin A1c Calcium 8.8 Total Bilirubin 0.3 AST 23 ALT 15 Alkaline Phosphatase 101 Total Protein 6.9 Albumin 4.0 Globulin 2.9 Albumin/Globulin Ratio 1.4 Free T4 TSH 3rd Generation 08/28/18 08/28/18 08/28/18 06:03 06:03 07:26 WBC RBC Hgb Hct MCV MCH MCHC RDW Plt Count MPV Neut % (Auto) Lymph % (Auto) Leake % (Auto) Eos % (Auto) Baso % (Auto) Neut # (Auto) Lymph # (Auto) Leake # (Auto) Eos # (Auto) Baso # (Auto) PT INR APTT Sodium Potassium Chloride Carbon Dioxide Anion Gap BUN Creatinine Est GFR ( Amer) Est GFR (Non-Af Amer) POC Glucose (mg/dL) 99 Random Glucose Hemoglobin A1c 6.5 Calcium Total Bilirubin AST ALT Alkaline Phosphatase Total Protein Albumin Globulin Albumin/Globulin Ratio Free T4 0.88 TSH 3rd Generation 2.33 08/28/18 08/28/18 12:04 16:21 WBC RBC Hgb Hct MCV MCH MCHC RDW Plt Count MPV Neut % (Auto) Lymph % (Auto) Leake % (Auto) Eos % (Auto) Baso % (Auto) Neut # (Auto) Lymph # (Auto) Leake # (Auto) Eos # (Auto) Baso # (Auto) PT INR APTT Sodium Potassium Chloride Carbon Dioxide Anion Gap BUN Creatinine Est GFR ( Amer) Est GFR (Non-Af Amer) POC Glucose (mg/dL) 227 H 82 Random Glucose Hemoglobin A1c Calcium Total Bilirubin AST ALT Alkaline Phosphatase Total Protein Albumin Globulin Albumin/Globulin Ratio Free T4 TSH 3rd Generation Assessment & Plan (1) Ambulatory dysfunction Assessment and Plan: Secondary to severe DJD of the left knee and left hip. Will ask for a rheumatological evaluation. Try pain medications and PT. Status: Acute Decision To Admit - Pt Status Changed To: Hospital Disposition Of: Inpatient - Admit Certification Admit to Inpatient:: After my assessment, the patient will require hospital ization for at least two midnights. This is because of the severity of symptoms shown, intensity of services needed, and/or the medical risk in this patient being treated as an outpatient. - InPatient: Physician Admission Certification:: After my assessments, the patient requires hospitalization for at least 2 midnights. - . Bed Request Type: Regular Admitting Physician: Jonh Mercer
[2018-08-28 22:41] LABS: SQUAMOUS EPITHIAL 3 /hpf (0-5); URINE BACTERIA RARE (<OCC); URINE BILIRUBIN NEGATIVE (NEGATIVE); URINE BLOOD NEGATIVE (NEGATIVE); URINE CLARITY Hazy (Clear); URINE COLOR Yellow (YELLOW); URINE GLUCOSE (UA) NORMAL (Normal); URINE LEUKOCYTE ESTERASE 1+ Leu/uL (Negative); URINE PROTEIN NEGATIVE (NEGATIVE); URINE UROBILINOGEN NORMAL mg/dL (0.2-1.0)
[2018-08-29] MEDS: (Novolog) Insulin Aspart, Recombinant 100 u/ml 10 ml vial SC SCH ×4 (07:30→22:22)
[2018-08-29] MEDS: Enoxaparin 40 mg Syringe SC SCH (09:21)
[2018-08-29 12:42] LABS: ANTI STREPTOLYSIN O NEGATIVE (NEGATIVE)
[2018-08-29] MEDS: Multiple Vitamins Tab PO SCH (14:43)
--- NOTE | 2018-08-30 07:25 | CON ---
DATE: 08/29/2018 REASON FOR CONSULTATION: Left leg weakness. HISTORY OF PRESENTING ILLNESS: The patient is an 82-year-old female who was brought to the hospital as she was having difficulty with walking. The patient was in [place] over the weekend and there she started to have difficulty with walking. As per daughter, she noticed that her left leg was weaker and she was also slurring with speech. The patient usually walks with a walker without any difficulty. However, the other day, she was dragging her left leg. The patient denies any weakness in her arms. Denies any headache or dizziness. REVIEW OF SYSTEMS: Denies any headache, dizziness, chest pain, shortness of breath, abdominal pain, constipation, diarrhea, dysuria, cough, sputum production. PAST MEDICAL HISTORY: Includes arthritis, CHF, memory loss, hypertension, hyperlipidemia, seizures and chronic kidney disease. PAST SURGICAL HISTORY: Includes cholecystectomy. MEDICATIONS: At home included metformin, Keppra 500 mg b.i.d., amlodipine, losartan, Zetia, Colace, aspirin. ALLERGIES: NO KNOWN DRUG ALLERGIES. SOCIAL HISTORY: The patient denies smoking, use of alcohol or use of any illicit drugs. FAMILY HISTORY: Reviewed and noncontributory to the case. PHYSICAL EXAMINATION: GENERAL: The patient is an elderly pleasant female, lying on the bed, in no acute distress. VITAL SIGNS: Her blood pressure is 151/78, heart rate is 76 per minute, breathing at a rate of 16 per minute, and temperature is 98.3 degrees Fahrenheit. HEENT: Head normocephalic and atraumatic. NECK: Supple. There are no carotid bruits. LUNGS: Clear. CARDIOVASCULAR SYSTEM: S1 and S2 audible. No murmurs. ABDOMEN: Soft and nontender. Bowel sounds are present. NEUROLOGIC: Mental status: The patient is awake and alert. She knows she is in the hospital. She knows the year. She recognizes her children. She follows all simple commands. Cranial nerve examination: Pupils are 2 mm, minimally reactive to light. Visual billings are full. Extraocular movements are intact. There is no facial asymmetry. Palate is upgoing bilaterally and tongue is midline. Motor examination: Tone is normal. Power in the upper extremities is 4/5. Power in the lower extremities is 3-4/5 on the left side and 4-5/5 on the right side. LABORATORY DATA: Labs reviewed show WBC of 6.6, hemoglobin 11.7, hematocrit of 36 and platelets of 236. Sodium 140, potassium 4.2, chloride 107, carbon dioxide 25, BUN of 27, creatinine of 1 and glucose of 119. The patient had a CT scan of the head done, which shows severe chronic microvascular ischemic changes, dense bilateral basal ganglia calcification, chronic cerebellar infarct, punctate left caudate head lacunar infarct. The patient had a CT of the left pelvis, which shows degenerative changes of the left hip, chronic diverticulosis. IMPRESSION: 1. Left lower extremity weakness, possibly secondary to arthritic changes in her hip, rule out any central etiology of possible stroke. 2. Cerebrovascular disease. 3. Gait dysfunction. 4. Seizure disorder. RECOMMENDATIONS: 1. The patient to have MRI of the brain without contrast. 2. The patient to have physical therapy. 3. If the patient's MRI of the brain does show a stroke, then a full stroke workup to be done with carotid Doppler and echocardiogram. 4. The patient to be continued on her Keppra for her underlying seizure disorder. 5. With her underlying seizure disorder, we will discontinue her tramadol as it can lower seizure threshold. 6. Please continue supportive care and other treatment. Thank you for the opportunity to participate in the care of this patient. Danuta Sylvester MD
[2018-08-30] MEDS: (Novolog) Insulin Aspart, Recombinant 100 u/ml 10 ml vial SC SCH ×3 (07:57→18:11)
[2018-08-30] MEDS: Multiple Vitamins Tab PO SCH (09:50)
[2018-08-30] MEDS: Enoxaparin 40 mg Syringe SC SCH (09:50)
[2018-08-30 12:33] LABS: ANA PATTERN NUCLEOLAR
--- NOTE | 2018-08-30 21:13 | CP.PCM.PN ---
Subjective - Date & Time of Evaluation Date of Evaluation: 08/30/18 Time of Evaluation: 21:09 - Subjective Subjective: Review of old chart discloses that the patient had a loop recorder( [place] ) inserted by Dr Delcid in 2015 for recurrent syncopal episodes. Result of the recording unknown at the present time since Dr Delcid is not on staff at [facility] anymore.The patient subsequently had a safe MRI of the head in 2017. Will clear patient for a head MRI since a loop recorder is not a contraindication. Patient was evaluted by Dr Shivani Sylvester and Dr Trujillo. PT ordered. Objective - Vital Signs/Intake and Output Vital Signs (last 24 hours): Temp Pulse Resp BP Pulse Ox 97.8 F 107 H 20 132/86 94 L 08/30/18 15:00 08/30/18 15:00 08/30/18 15:00 08/30/18 15:00 08/30/18 15:00 Intake and Output: 08/30/18 08/31/18 18:59 06:59 Intake Total 600 Output Total 500 Balance 100 - Medications Medications: Current Medications Amlodipine Besylate (Norvasc) 10 mg PO DAILY [facility] Last Admin: 08/30/18 09:50 Dose: 10 mg Aspirin (Aspirin Chewable) 81 mg PO DAILY [facility] Last Admin: 08/30/18 09:50 Dose: 81 mg Docusate Sodium (Colace) 100 mg PO BID [facility] Last Admin: 08/30/18 18:10 Dose: 100 mg Ezetimibe (Zetia) 10 mg PO DAILY [facility] Last Admin: 08/30/18 09:50 Dose: 10 mg Enoxaparin Sodium (Lovenox) 40 mg SC DAILY [facility] Last Admin: 08/30/18 09:50 Dose: 40 mg Ergocalciferol (Drisdol 50,000 Intl Units Cap) 1 cap PO QWK [facility] Insulin Aspart (Novolog) [address] [facility]; Protocol Last Admin: 08/30/18 18:11 Dose: Not Given Levetiracetam (Keppra) 500 mg PO BID [facility] Last Admin: 08/30/18 18:10 Dose: 500 mg Losartan Potassium (Cozaar) 100 mg PO DAILY [facility] Last Admin: 08/30/18 09:50 Dose: 100 mg Metformin HCl (Glucophage) 850 mg PO BID [facility] Last Admin: 02/27/19 18:10 Dose: 850 mg Multivitamins (Hexavitamin) 1 tab PO DAILY [facility] Last Admin: 08/30/18 09:50 Dose: 1 tab - Labs Labs: 08/27/18 20:47 08/27/18 20:47 PT 10.6 SECONDS (9.7-12.2) 08/27/18 20:47 INR 1.0 08/27/18 20:47 APTT 30 SECONDS (21-34) 08/27/18 20:47 - Constitutional Appears: No Acute Distress, Chronically Ill - Head Exam Head Exam: NORMAL INSPECTION - Eye Exam Eye Exam: Normal appearance Pupil Exam: NORMAL ACCOMODATION - ENT Exam ENT Exam: Normal Exam - Neck Exam Neck Exam: Normal Inspection - Respiratory Exam Respiratory Exam: Clear to Ausculation Bilateral, NORMAL BREATHING PATTERN - Cardiovascular Exam Cardiovascular Exam: REGULAR RHYTHM - GI/Abdominal Exam GI & Abdominal Exam: Soft, Normal Bowel Sounds - Rectal Exam Rectal Exam: Deferred - Exam Exam: NORMAL INSPECTION - Extremities Exam Extremities Exam: Normal Inspection - Back Exam Back Exam: NORMAL INSPECTION - Neurological Exam Neurological Exam: Abnormal Gait, Alert, Awake, Oriented x3 - Psychiatric Exam Psychiatric exam: Anxious - Skin Skin Exam: Dry, Intact Assessment and Plan (1) Ambulatory dysfunction Assessment & Plan: For an MRI of the head without contrast and PT. Status: Acute
[2018-08-31] MEDS: (Novolog) Insulin Aspart, Recombinant 100 u/ml 10 ml vial SC SCH ×4 (07:57→21:08)
[2018-08-31] MEDS: Multiple Vitamins Tab PO SCH (09:11)
[2018-08-31] MEDS: Enoxaparin 40 mg Syringe SC SCH (09:11)
--- NOTE | 2018-08-31 12:11 | CP.PCM.CON ---
History of Present Illness - History of Present Illness History of Present Illness: 82-YEAR-OLD female complaining of pain and stiffness in both lower extremities. Patient relates that about 2 weeks ago she began feeling weakness in the left leg with stiffness in both knees. This history inclu lacunar in farcts, arteriosclerotic heart disease and degenerative arthritis. CT scan of both kn was requested. Lab studies demonstrate osteoarthritis. Patient has an DAYLIN positive with a tit which is insignifica in this age group. Suggest patient co physical therapy. Recommend Voltaren gel 3 times a day to both lower extremities. Patient may benefit from intra-articular steroidal injections of both knees. Review of Systems - Constitutional Constitutional: Fatigue, Weakness - Reproductive: Female Reproductive:Female: Post Menopausal - Integumentary Integumentary: Dry Skin Past Patient History - Infectious Disease Hx of Infectious Diseases: None - Tetanus Immunizations Tetanus Immunization: Unknown - Past Medical History & Family History Past Medical History?: Yes - Past Social History Smoking Status: Never Smoked Chewing Tobacco Use: No Cigar Use: No Alcohol: None Drugs: Denies Home Situation {Lives}: With Family Domestic Violence: Negative - CARDIAC Hx Congestive Heart Failure: Yes Hx Hypercholesterolemia: Yes Hx Hypertension: Yes - PULMONARY Hx Respiratory Disorders: No - NEUROLOGICAL Hx Dementia: Yes Hx Seizures: Yes - HEENT Hx HEENT Problems: Yes Hx Cataracts: Yes (Bilat eyes) Hx Glaucoma: Yes - RENAL Hx Chronic Kidney Disease: No - ENDOCRINE/METABOLIC Hx Diabetes Mellitus Type 2: Yes - HEMATOLOGICAL/ONCOLOGICAL Hx Blood Disorders: No - INTEGUMENTARY Hx Dermatological Problems: No - MUSCULOSKELETAL/RHEUMATOLOGICAL Hx Arthritis: Yes - GASTROINTESTINAL Hx Gastrointestinal Disorders: No - GENITOURINARY/GYNECOLOGICAL Hx Genitourinary Disorders: No - PSYCHIATRIC Hx Substance Use: No - SURGICAL HISTORY Hx Cholecystectomy: Yes - ANESTHESIA Hx Anesthesia: Yes Meds Allergies/Adverse Reactions: Allergies Allergy/AdvReac Type Severity Reaction Status Date / Time No Known Allergies Allergy Verified 11/04/17 11:29 - Medications Medications: Current Medications Amlodipine Besylate (Norvasc) 10 mg PO DAILY [facility] Last Admin: 08/31/18 09:10 Dose: 10 mg Aspirin (Aspirin Chewable) 81 mg PO DAILY [facility] Last Admin: 08/31/18 09:11 Dose: 81 mg Docusate Sodium (Colace) 100 mg PO BID [facility] Last Admin: 08/31/18 09:11 Dose: 100 mg Ezetimibe (Zetia) 10 mg PO DAILY [facility] Last Admin: 08/31/18 09:10 Dose: 10 mg Enoxaparin Sodium (Lovenox) 40 mg SC DAILY [facility] Last Admin: 08/31/18 09:11 Dose: 40 mg Ergocalciferol (Drisdol 50,000 Intl Units Cap) 1 cap PO QWK [facility] Insulin Aspart (Novolog) 0 unit SC ACHS [facility]; Protocol Last Admin: 08/31/18 07:57 Dose: Not Given Levetiracetam (Keppra) 500 mg PO BID [facility] Last Admin: 08/31/18 09:11 Dose: 500 mg Losartan Potassium (Cozaar) 100 mg PO DAILY [facility] Last Admin: 08/31/18 09:11 Dose: 100 mg Metformin HCl (Glucophage) 850 mg PO BID [facility] Last Admin: 08/31/18 09:11 Dose: 850 mg Multivitamins (Hexavitamin) 1 tab PO DAILY [facility] Last Admin: 08/31/18 09:11 Dose: 1 tab Physical Exam - Head Exam Head Exam: NORMOCEPHALIC - Eye Exam Eye Exam: Normal appearance Pupil Exam: NORMAL ACCOMODATION - ENT Exam ENT Exam: Normal Exam - Neck Exam Neck exam: Positive for: Normal Inspection - Respiratory Exam Respiratory Exam: NORMAL BREATHING PATTERN - Cardiovascular Exam Cardiovascular Exam: REGULAR RHYTHM - GI/Abdominal Exam GI & Abdominal Exam: Normal Bowel Sounds - Rectal Exam Rectal Exam: Deferred - Exam Exam: NORMAL INSPECTION - Extremities Exam Extremities exam: Positive for: joint swelling - Back Exam Back exam: NORMAL INSPECTION - Neurological Exam Neurological exam: Oriented x3 - Psychiatric Exam Psychiatric exam: Normal Affect Results - Vital Signs Recent Vital Signs: Last Vital Signs Temp 98.0 F 08/31/18 07:12 Pulse 74 08/31/18 07:12 Resp 18 08/31/18 07:12 BP 182/84 H 08/31/18 07:12 Pulse Ox 96 08/31/18 07:12 - Labs Result Diagrams: 08/27/18 20:47 08/27/18 20:47 Labs: Laboratory Results - last 24 hr 08/29/18 08/29/18 08/30/18 07:46 07:46 16:20 POC Glucose (mg/dL) 95 Cycl Citrul Peptide IgG <16 DAYLIN 6 Profile Positive H DAYLIN Titer 1:40 H DAYLIN Pattern Nucleolar H Anti-Streptolysin O Ab Negative 08/30/18 08/31/18 21:12 07:20 POC Glucose (mg/dL) 136 H 104 Cycl Citrul Peptide IgG DAYLIN 6 Profile DAYLIN Titer DAYLIN Pattern Anti-Streptolysin O Ab Assessment & Plan (1) Ambulatory dysfunction Status: Acute (2) Arthritis Status: Acute (3) Joint pain Status: Acute
--- NOTE | 2018-08-31 16:12 | MRI ---
Date of service: 08/31/2018 PROCEDURE: MRI BRAIN WITHOUT CONTRAST HISTORY: Weakness of the left leg. COMPARISON: Noncontrast head CT 08/27/2018. TECHNIQUE: Multiplanar, multisequence MR images of the brain were obtained without intravenous contrast enhancement. FINDINGS: HEMORRHAGE: Marked signal dephasing at the bilateral basal ganglia corresponds to dense calcification identified in prior head CT noted above. No definite intracranial hemorrhage appreciable. DWI: Restricted diffusion at the right external capsule is identified posteriorly indicative of a small acute subacute infarct. BRAIN PARENCHYMA: Good corticomedullary differentiation is seen. Reiterated diffuse cerebral atrophy and chronic microangiopathy. No suspicious extra-axial fluid collection is identified and the midline brain anatomy appears grossly nonfocal as imaged. No mass effect identified. A chronic lacune is identified at the left thalamus as well as bilateral cerebellar hemispheres inferiorly. Additional chronic lacune is seen at the left parieto-occipital junction and left optic radiations at the level of the parietal lobe. VENTRICLES: Unremarkable. No hydrocephalus. CRANIUM: Unremarkable. ORBITS: Evidence suggesting prior left cataract surgery. PARANASAL SINUSES/MASTOIDS: Multifocal sinus disease bilateral ethmoid air cells. VASCULAR SYSTEM: Skull base flow voids intact. OTHER FINDINGS: None. IMPRESSION: 1. Small acute subacute infarct right external capsule posteriorly. 2. No lobar brain infarction appreciated on acute subacute basis or even chronic. 3. Age-appropriate age related neuro degenerative changes. Chronic lacunes as discussed above.
--- NOTE | 2018-08-31 18:09 | CP.PCM.PN ---
Subjective - Date & Time of Evaluation Date of Evaluation: 08/31/18 Time of Evaluation: 18:06 - Subjective Subjective: Patient still complaining of left knee pain and weakness of the left leg. Brain MRI revealed a small subacute/acute infarct of the right external capsule posteriorly, and old, chronic lacunar infarcts of the left thalamus, the cerebellum bilaterally and the left parietal-occipital junction. Objective - Vital Signs/Intake and Output Vital Signs (last 24 hours): Temp Pulse Resp BP Pulse Ox 97.9 F 84 20 163/90 H 98 08/31/18 16:38 08/31/18 16:38 08/31/18 16:38 08/31/18 16:38 08/31/18 16:38 Intake and Output: 08/31/18 08/31/18 06:59 18:59 Intake Total 400 Output Total 300 Balance -300 400 - Medications Medications: Current Medications Amlodipine Besylate (Norvasc) 10 mg PO DAILY [facility] Last Admin: 08/31/18 09:10 Dose: 10 mg Aspirin (Aspirin Chewable) 81 mg PO DAILY [facility] Last Admin: 08/31/18 09:11 Dose: 81 mg Docusate Sodium (Colace) 100 mg PO BID [facility] Last Admin: 08/31/18 17:07 Dose: 100 mg Ezetimibe (Zetia) 10 mg PO DAILY [facility] Last Admin: 08/31/18 09:10 Dose: 10 mg Enoxaparin Sodium (Lovenox) 40 mg SC DAILY [facility] Last Admin: 08/31/18 09:11 Dose: 40 mg Ergocalciferol (Drisdol 50,000 Intl Units Cap) 1 cap PO QWK [facility] Insulin Aspart (Novolog) 0 unit SC ACHS [facility]; Protocol Last Admin: 08/31/18 16:44 Dose: Not Given Levetiracetam (Keppra) 500 mg PO BID [facility] Last Admin: 08/31/18 17:08 Dose: 500 mg Losartan Potassium (Cozaar) 100 mg PO DAILY [facility] Last Admin: 08/31/18 09:11 Dose: 100 mg Metformin HCl (Glucophage) 850 mg PO BID [facility] Last Admin: 08/31/18 17:08 Dose: 850 mg Multivitamins (Hexavitamin) 1 tab PO DAILY [facility] Last Admin: 08/31/18 09:11 Dose: 1 tab - Labs Labs: 08/27/18 20:47 08/27/18 20:47 PT 10.6 SECONDS (9.7-12.2) 08/27/18 20:47 INR 1.0 08/27/18 20:47 APTT 30 SECONDS (21-34) 08/27/18 20:47 - Constitutional Appears: Well, Chronically Ill - Head Exam Head Exam: NORMAL INSPECTION - Eye Exam Eye Exam: Normal appearance - ENT Exam ENT Exam: Normal Exam - Neck Exam Neck Exam: Normal Inspection - Respiratory Exam Respiratory Exam: Clear to Ausculation Bilateral, NORMAL BREATHING PATTERN - Cardiovascular Exam Cardiovascular Exam: REGULAR RHYTHM - GI/Abdominal Exam GI & Abdominal Exam: Soft, Normal Bowel Sounds - Rectal Exam Rectal Exam: Deferred - Extremities Exam Additional comments: Tender left knee. 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 Status: Acute
[2018-09-01] MEDS: (Novolog) Insulin Aspart, Recombinant 100 u/ml 10 ml vial SC SCH ×4 (09:13→21:31)
[2018-09-01] MEDS: Multiple Vitamins Tab PO SCH (10:03)
[2018-09-01] MEDS: Enoxaparin 40 mg Syringe SC SCH (10:03)
--- NOTE | 2018-09-01 21:21 | CP.PCM.PN ---
Subjective - Date & Time of Evaluation Date of Evaluation: 09/01/18 Time of Evaluation: 21:18 - Subjective Subjective: Patient still with weakness of the left leg. Receiving PT. Carotid duplex scan: Minimal heterogenous plaques at both bulbs, with no significant stenosis. EchO: Normal LV systolic function, with grade I diastolic dysfunction. Mild TR with mild pulmonary hypertension. Mild sclerosis of the mitral annulus and aortic root. Awaiting subacute rehab. placement. Objective - Vital Signs/Intake and Output Vital Signs (last 24 hours): Temp Pulse Resp BP Pulse Ox 98.2 F 107 H 18 155/79 H 94 L 09/01/18 15:00 09/01/18 15:00 09/01/18 15:00 09/01/18 15:00 09/01/18 15:00 Intake and Output: 09/01/18 09/02/18 18:59 06:59 Intake Total 700 Output Total 600 Balance 100 - Medications Medications: Current Medications Acetaminophen (Tylenol 325mg Tab) 650 mg PO Q6 PRN PRN Reason: Pain, moderate (4-7) Amlodipine Besylate (Norvasc) 10 mg PO DAILY [facility] Last Admin: 09/01/18 10:03 Dose: 10 mg Aspirin (Aspirin Chewable) 81 mg PO DAILY [facility] Last Admin: 09/01/18 10:03 Dose: 81 mg Docusate Sodium (Colace) 100 mg PO BID [facility] Last Admin: 09/01/18 17:55 Dose: 100 mg Ezetimibe (Zetia) 10 mg PO DAILY [facility] Last Admin: 09/01/18 10:02 Dose: 10 mg Enoxaparin Sodium (Lovenox) 40 mg SC DAILY [facility] Last Admin: 09/01/18 10:03 Dose: 40 mg Ergocalciferol (Drisdol 50,000 Intl Units Cap) 1 cap PO QWK [facility] Insulin Aspart (Novolog) 0 unit SC [facility]; Protocol Last Admin: 09/01/18 17:45 Dose: Not Given Levetiracetam (Keppra) 500 mg PO BID [facility] Last Admin: 09/01/18 17:55 Dose: 500 mg Losartan Potassium (Cozaar) 100 mg PO DAILY [facility] Last Admin: 09/01/18 10:03 Dose: 100 mg Metformin HCl (Glucophage) 850 mg PO BID [facility] Last Admin: 09/01/18 17:55 Dose: Not Given Multivitamins (Hexavitamin) 1 tab PO DAILY [facility] Last Admin: 09/01/18 10:03 Dose: 1 tab Rosuvastatin Calcium (Crestor) 10 mg PO HS [facility] Last Admin: 08/31/18 21:11 Dose: 10 mg - Labs Labs: 08/27/18 20:47 08/27/18 20:47 PT 10.6 SECONDS (9.7-12.2) 08/27/18 20:47 INR 1.0 08/27/18 20:47 APTT 30 SECONDS (21-34) 08/27/18 20:47 - Constitutional Appears: No Acute Distress, Chronically Ill - Head Exam Head Exam: NORMOCEPHALIC - Eye Exam Eye Exam: Normal appearance - ENT Exam ENT Exam: Normal Exam - Neck Exam Neck Exam: Normal Inspection - Respiratory Exam Respiratory Exam: Clear to Ausculation Bilateral, NORMAL BREATHING PATTERN - Cardiovascular Exam Cardiovascular Exam: REGULAR RHYTHM - GI/Abdominal Exam GI & Abdominal Exam: Soft, Normal Bowel Sounds - Rectal Exam Rectal Exam: Deferred - Extremities Exam Extremities Exam: Normal Inspection - Back Exam Back Exam: NORMAL INSPECTION - Neurological Exam Neurological Exam: Abnormal Gait, Alert, Awake, Oriented x3 - Psychiatric Exam Psychiatric exam: Anxious - Skin Skin Exam: Dry, Intact, Normal Color, Warm Assessment and Plan (1) Ambulatory dysfunction Assessment & Plan: To continue PT and OT. Status: Acute (2) Acute right arterial ischemic stroke, [place] (posterior cerebral artery) Assessment & Plan: To continue same meds. Status: Acute
[2018-09-02] MEDS: (Novolog) Insulin Aspart, Recombinant 100 u/ml 10 ml vial SC SCH ×4 (08:09→21:50)
[2018-09-02] MEDS: Multiple Vitamins Tab PO SCH (10:32)
[2018-09-02] MEDS: Enoxaparin 40 mg Syringe SC SCH (10:32)
--- NOTE | 2018-09-02 10:54 | VASCLAB ---
Date of service: 09/01/2018 PROCEDURE: Carotid Duplex Exam. HISTORY: small acute infarct COMPARISON: None available. TECHNIQUE: Grayscale and duplex Doppler evaluation of the cervical carotid and vertebral arteries were performed. The common carotid, carotid bifurcations and cervical Internal Carotid Artery (ICA) and proximal External Carotid Artery (ECA) were evaluated. The vertebral arteries were evaluated for gross patency and flow direction. Report prepared by Esteban Chávez, BS, RVT FINDINGS: RIGHT CAROTID ARTERIES: 1. Common Carotid Artery: No significant focal plaque formation of the right common carotid artery. Mild intimal hyperplasia. Maximum Peak Systolic velocity: 78 cm/sec: End-diastolic velocity 17 cm/sec. 2. Carotid Bifurcation: Minimal focal calcific plaque formation. Maximum Peak Systolic velocity: 70 cm/sec: End-diastolic velocity 11 cm/sec. 3. Internal Carotid Artery: Plaque description: Heterogeneous 3.1. Proximal Segment: Peak systolic velocity 57 cm/sec: End-diastolic velocity 14 cm/sec - % stenosis 0-15% 3.2. Middle Segment: Peak systolic velocity 89 cm/sec: End-diastolic velocity 19 cm/sec - % stenosis 0-15% 3.3. Distal Segment: Peak systolic velocity 63 cm/sec: End-diastolic velocity 14 cm/sec - % stenosis 0-15% 4. External Carotid Artery: No significant focal plaque formation. Peak systolic velocity 60 cm/sec 5. ICA/CCA Ratio: 1.1 LEFT CAROTID ARTERIES: 1. Common Carotid Artery: No significant focal plaque formation of the left common carotid artery. Mild intimal hyperplasia. Maximum Peak Systolic velocity: 84 cm/sec: End-diastolic velocity 17 cm/sec. 2. Carotid Bifurcation: Mild focal calcific plaque formation. Maximum Peak Systolic velocity: 60 cm/sec: End-diastolic velocity 14 cm/sec. 3. Internal Carotid Artery: Plaque description: Heterogeneous 3.1. Proximal Segment: Peak systolic velocity 83 cm/sec: End-diastolic velocity 20 cm/sec - % stenosis 0-15% 3.2. Middle Segment: Peak systolic velocity 101 cm/sec: End-diastolic velocity 27 cm/sec - % stenosis 0-15% 3.3. Distal Segment: Peak systolic velocity 56 cm/sec: End-diastolic velocity 15 cm/sec - % stenosis 0-15% 4. External Carotid Artery: No significant focal plaque formation. Peak systolic velocity 80 cm/sec 5. ICA/CCA Ratio: 1.2 VERTEBRAL ARTERIES: 1. Right Vertebral Artery: The right vertebral artery flow direction is antegrade. 2. Left Vertebral Artery: The left vertebral artery flow direction is antegrade. OTHER FINDINGS: 1. Right Brachial Blood pressure: mmHg. 2. Left Brachial Blood pressure: mmHg. IMPRESSION: RIGHT: Duplex scan does not suggest hemodynamically significant stenosis of the right extracranial carotid arteries. LEFT: Duplex scan does not suggest hemodynamically significant stenosis of the left extracranial carotid arteries.
--- NOTE | 2018-09-02 15:25 | CP.PCM.PN ---
Subjective - Date & Time of Evaluation Date of Evaluation: 09/02/18 Time of Evaluation: 15:22 - Subjective Subjective: Patient stil with left leg weakness and less left knee pain. Is receiving PT and awaiting subacute rehab placement. Objective - Vital Signs/Intake and Output Vital Signs (last 24 hours): Temp Pulse Resp BP Pulse Ox 97.9 F 62 18 145/96 H 95 09/02/18 07:00 09/02/18 07:00 09/02/18 07:00 09/02/18 07:00 09/02/18 07:00 Intake and Output: 09/02/18 09/02/18 06:59 18:59 Intake Total 800 Output Total 850 Balance -50 - Medications Medications: Current Medications Acetaminophen (Tylenol 325mg Tab) 650 mg PO Q6 PRN PRN Reason: Pain, moderate (4-7) Amlodipine Besylate (Norvasc) 10 mg PO DAILY [facility] Last Admin: 09/02/18 10:31 Dose: 10 mg Aspirin (Aspirin Chewable) 81 mg PO DAILY [facility] Last Admin: 09/02/18 10:32 Dose: 81 mg Docusate Sodium (Colace) 100 mg PO BID [facility] Last Admin: 09/02/18 10:31 Dose: 100 mg Ezetimibe (Zetia) 10 mg PO DAILY [facility] Last Admin: 09/02/18 10:36 Dose: 10 mg Enoxaparin Sodium (Lovenox) 40 mg SC DAILY [facility] Last Admin: 09/02/18 10:32 Dose: 40 mg Ergocalciferol (Drisdol 50,000 Intl Units Cap) 1 cap PO QWK [facility] Insulin Aspart (Novolog) 0 unit SC ACHS [facility]; Protocol Last Admin: 09/02/18 12:55 Dose: Not Given Levetiracetam (Keppra) 500 mg PO BID [facility] Last Admin: 09/02/18 10:32 Dose: 500 mg Losartan Potassium (Cozaar) 100 mg PO DAILY [facility] Last Admin: 09/02/18 10:32 Dose: 100 mg Metformin HCl (Glucophage) 850 mg PO BID [facility] Last Admin: 09/02/18 10:31 Dose: 850 mg Multivitamins (Hexavitamin) 1 tab PO DAILY [facility] Last Admin: 09/02/18 10:32 Dose: 1 tab Rosuvastatin Calcium (Crestor) 10 mg PO HS [facility] Last Admin: 09/01/18 21:31 Dose: 10 mg - Labs Labs: 08/27/18 20:47 08/27/18 20:47 PT 10.6 SECONDS (9.7-12.2) 08/27/18 20:47 INR 1.0 08/27/18 20:47 APTT 30 SECONDS (21-34) 08/27/18 20:47 - Constitutional Appears: Chronically Ill - Head Exam Head Exam: NORMAL INSPECTION - Eye Exam Eye Exam: Normal appearance - ENT Exam ENT Exam: Normal Exam - Neck Exam Neck Exam: Normal Inspection - Respiratory Exam Respiratory Exam: Clear to Ausculation Bilateral, NORMAL BREATHING PATTERN - Cardiovascular Exam Cardiovascular Exam: REGULAR RHYTHM - GI/Abdominal Exam GI & Abdominal Exam: Soft, Normal Bowel Sounds - Rectal Exam Rectal Exam: Deferred - Extremities Exam Extremities Exam: Normal Inspection Additional comments: Mild left leg weakness. - Back Exam Back Exam: NORMAL INSPECTION - Neurological Exam Neurological Exam: Abnormal Gait, Alert, Awake, Oriented x3 Additional comments: Mild left leg weakness. - Psychiatric Exam Psychiatric exam: Anxious - Skin Skin Exam: Dry, Intact, Normal Color, Warm Assessment and Plan (1) Ambulatory dysfunction Assessment & Plan: SEcondary to a left leg weakness. Status: Acute (2) Acute right arterial ischemic stroke, DENTAL FLOSS PACKER (posterior cerebral artery) Assessment & Plan: To rehabilitation. Status: Acute
[2018-09-03] MEDS: (Novolog) Insulin Aspart, Recombinant 100 u/ml 10 ml vial SC SCH ×4 (07:55→21:50)
[2018-09-03 08:42] VITALS: RESP 20
[2018-09-03] MEDS: Multiple Vitamins Tab PO SCH (10:08)
[2018-09-03] MEDS: Enoxaparin 40 mg Syringe SC SCH (10:09)
--- NOTE | 2018-09-03 10:35 | CARD ---
APPROVED REPORT Date of service: 09/01/2018 EXAM: Two-dimensional and M-mode echocardiogram with Doppler and color Doppler. INDICATION Syncope RISK FACTORS Hypertension Hyperlipidemia Diabetes 2D DIMENSIONS IVSd1.4 (0.7-1.1cm)LVDd3.1 (3.9-5.9cm) PWd1.2 (0.7-1.1cm)LA Scljjx10 (18-58mL) LVDs2.1 (2.5-4.0cm)FS (%) 31.2 % LVEF (%)60.6 (>50%)LVEF (Jacobson's)67.41 % M-Mode DIMENSIONS Left Atrium (MM)4.11 (2.5-4.0cm)IVSd0.99 (0.7-1.1cm) Aortic Root3.51 (2.2-3.7cm)LVDd5.27 (4.0-5.6cm) Aortic Cusp Exc.1.76 (1.5-2.0cm)PWd1.01 (0.7-1.1cm) FS (%) 40 %LVDs3.14 (2.0-3.8cm) LVEF (%)71 (>50%) Mitral Valve MV E Eafysdlp30.0cm/sMV A Suhwcgcs428.4cm/sE/A ratio0.6 TDI Lateral E' Peak V7.06cm/sMedial E' Peak V5.77cm/sE/Lateral E'11.6 E/Medial E'14.2 Tricuspid Valve TR Peak [id number]/sTR Peak Gr.[id number] LEFT VENTRICLE The left ventricle is normal size. There is normal left ventricular wall thickness. Transmitral Doppler flow pattern is abnormal. RIGHT VENTRICLE The right ventricle is normal size. ATRIA The left atrium is borderline dilated. The right atrium size is normal. AORTIC VALVE The aortic valve is calcified but opens well. There is trace aortic regurgitation. MITRAL VALVE Mitral regurgitation is mild. TRICUSPID VALVE There is moderate tricuspid regurgitation. <Conclusion> Normal LV systolic functiion. Diastolic dysfunction. Borderline dilated LA. Mild MR. Trace AR. Moderate TR.
[2018-09-04] MEDS: (Novolog) Insulin Aspart, Recombinant 100 u/ml 10 ml vial SC SCH ×3 (07:30→18:47)
[2018-09-04] MEDS: Enoxaparin 40 mg Syringe SC SCH (09:15)
[2018-09-04] MEDS: Multiple Vitamins Tab PO SCH (09:15)
[2018-09-04] MEDS ORDERED: Ergocalciferol 50,000 Intl Units Cap PO SCH (10:00)
[2018-09-04 15:37] VITALS: BP 138/81; PULSE 85; TEMP 98.1; O2SAT 93
--- NOTE | 2018-09-04 15:50 | CP.PCM.PN ---
Subjective - Date & Time of Evaluation Date of Evaluation: 09/04/18 Time of Evaluation: 15:49 - Subjective Subjective: PATIENT SEEN AND EXAMINED AT THE BEDSIDE Objective - Vital Signs/Intake and Output Vital Signs (last 24 hours): Temp Pulse Resp BP Pulse Ox 98.1 F 85 20 138/81 93 L 09/04/18 15:00 09/04/18 15:00 09/04/18 15:00 09/04/18 15:00 09/04/18 15:00 Intake and Output: 09/04/18 09/04/18 06:59 18:59 Output Total 250 Balance -250 - Medications Medications: Current Medications Acetaminophen (Tylenol 325mg Tab) 650 mg PO Q6 PRN PRN Reason: Pain, moderate (4-7) Last Admin: 09/04/18 09:15 Dose: 650 mg Amlodipine Besylate (Norvasc) 10 mg PO DAILY [facility] Last Admin: 09/04/18 09:15 Dose: 10 mg Aspirin (Aspirin Chewable) 81 mg PO DAILY [facility] Last Admin: 09/04/18 09:15 Dose: 81 mg Docusate Sodium (Colace) 100 mg PO BID [facility] Last Admin: 09/04/18 09:15 Dose: 100 mg Ezetimibe (Zetia) 10 mg PO DAILY [facility] Last Admin: 09/04/18 09:15 Dose: 10 mg Enoxaparin Sodium (Lovenox) 40 mg SC DAILY [facility] Last Admin: 09/04/18 09:15 Dose: 40 mg Ergocalciferol (Drisdol 50,000 Intl Units Cap) 1 cap PO QWK [facility] Last Admin: 09/04/18 09:15 Dose: 1 cap Insulin Aspart (Novolog) 0 unit SC [facility]; Protocol Last Admin: 09/04/18 12:23 Dose: 1 unit Levetiracetam (Keppra) 500 mg PO BID [facility] Last Admin: 09/04/18 09:15 Dose: 500 mg Losartan Potassium (Cozaar) 100 mg PO DAILY [facility] Last Admin: 09/04/18 09:15 Dose: 100 mg Metformin HCl (Glucophage) 850 mg PO BID [facility] Last Admin: 09/04/18 09:15 Dose: 850 mg Multivitamins (Hexavitamin) 1 tab PO DAILY [facility] Last Admin: 09/04/18 09:15 Dose: 1 tab Rosuvastatin Calcium (Crestor) 10 mg PO HS [facility] Last Admin: 09/03/18 21:48 Dose: 10 mg - Labs Labs: 08/27/18 20:47 08/27/18 20:47 PT 10.6 SECONDS (9.7-12.2) 08/27/18 20:47 INR 1.0 08/27/18 20:47 APTT 30 SECONDS (21-34) 08/27/18 20:47 Assessment and Plan - Assessment and Plan (Free Text) Assessment: PLACE UNDER THE SERVICE OF DR BUCHANAN AT [facility]-----CALL FOR ADMITTING ORDER CONTINUE HOME MEDICATION PER MED REC ACTIVITY TOLERATED AND FACILITY PROTOCOL CALL DR BUCHANAN FOR FURTHER ORDER
--- NOTE | 2018-09-06 08:33 | CP.PCM.DIS ---
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 Time Spent in preparation of Discharge (in minutes): 45 Diagnosis - Discharge Diagnosis (1) Ambulatory dysfunction Status: Acute (2) Acute right arterial ischemic stroke, PUNCH BOX TENDER (posterior cerebral artery) Status: Acute Hospital Course - Lab Results Lab Results: Most Recent Lab Values WBC 6.6 K/uL (4.8-10.8) 08/27/18 20:47 RBC 4.06 Mil/uL (3.80-5.20) 08/27/18 20:47 Hgb 11.7 g/dL (11.0-16.0) 08/27/18 20:47 Hct 36.0 % (34.0-47.0) 08/27/18 20:47 MCV 88.6 fL (81.0-99.0) D 08/27/18 20:47 MCH 28.9 pg (27.0-31.0) 08/27/18 20:47 MCHC 32.6 g/dL (33.0-37.0) L 08/27/18 20:47 RDW 15.7 % (11.5-14.5) H 08/27/18 20:47 Plt Count 236 K/uL (130-400) 08/27/18 20:47 MPV 8.6 fL (7.2-11.7) 08/27/18 20:47 Neut % (Auto) 65.9 % (50.0-75.0) 08/27/18 20:47 Lymph % (Auto) 21.3 % (20.0-40.0) 08/27/18 20:47 [place] % (Auto) 7.8 % (0.0-10.0) 08/27/18 20:47 Eos % (Auto) 3.7 % (0.0-4.0) 08/27/18 20:47 Baso % (Auto) 1.3 % (0.0-2.0) 08/27/18 20:47 Neut # (Auto) 4.4 K/uL (1.8-7.0) 08/27/18 20:47 Lymph # (Auto) 1.4 K/uL (1.0-4.3) 08/27/18 20:47 [place] # (Auto) 0.5 K/uL (0.0-0.8) 08/27/18 20:47 Eos # (Auto) 0.2 K/uL (0.0-0.7) 08/27/18 20:47 Baso # (Auto) 0.1 K/uL (0.0-0.2) 08/27/18 20:47 ESR 20 mm/hr (0-20) 08/29/18 07:46 PT 10.6 SECONDS (9.7-12.2) 08/27/18 20:47 INR 1.0 08/27/18 20:47 APTT 30 SECONDS (21-34) 08/27/18 20:47 Sodium 140 mmol/L (132-148) 08/27/18 20:47 Potassium 4.2 mmol/L (3.6-5.2) 08/27/18 20:47 Chloride 107 mmol/L (98-107) 08/27/18 20:47 Carbon Dioxide 25 mmol/L (22-30) 08/27/18 20:47 Anion Gap 13 (10-20) 08/27/18 20:47 BUN 27 mg/dL (7-17) H 08/27/18 20:47 Creatinine 1.0 mg/dL (0.7-1.2) 08/27/18 20:47 Est GFR ( Amer) > 60 08/27/18 20:47 Est GFR (Non-Af Amer) 53 08/27/18 20:47 POC Glucose (mg/dL) 83 mg/dL (65-110) 09/04/18 16:08 Random Glucose 119 mg/dL (65-105) H D 08/27/18 20:47 Hemoglobin A1c 6.5 % (4.2-6.5) 08/28/18 06:03 Calcium 8.8 mg/dl (8.6-10.4) 08/27/18 20:47 Total Bilirubin 0.3 mg/dL (0.2-1.3) 08/27/18 20:47 AST 23 U/L (14-36) 08/27/18 20:47 ALT 15 U/L (9-52) 08/27/18 20:47 Alkaline Phosphatase 101 U/L (38-126) 08/27/18 20:47 C-React Prot High Sens 4.63 mg/L (1.00-3.00) H 08/29/18 07:46 Total Protein 6.9 g/dL (6.3-8.3) 08/27/18 20:47 Albumin 4.0 g/dL (3.5-5.0) 08/27/18 20:47 Globulin 2.9 gm/dL (2.2-3.9) 08/27/18 20:47 Albumin/Globulin Ratio 1.4 (1.0-2.1) 08/27/18 20:47 Free T4 0.88 ng/dL (0.78-2.19) 08/28/18 06:03 TSH 3rd Generation 2.33 mIU/L (0.46-4.68) 08/28/18 06:03 Urine Color Yellow (YELLOW) 08/28/18 22:24 Urine Clarity Hazy (Clear) 08/28/18 22:24 Urine pH 5.0 (5.0-8.0) 08/28/18 22:24 Ur Specific [place] 1.012 (1.003-1.030) 08/28/18 22:24 Urine Protein Negative mg/dL (NEGATIVE) 08/28/18 22:24 Urine Glucose (UA) Normal mg/dL (Normal) 08/28/18 22:24 Urine Ketones Negative mg/dL (NEGATIVE) 08/28/18 22:24 Urine Blood Negative (NEGATIVE) 08/28/18 22:24 Urine Nitrate Negative (NEGATIVE) 08/28/18 22:24 Urine Bilirubin Negative (NEGATIVE) 08/28/18 22:24 Urine Urobilinogen Normal mg/dL (0.2-1.0) 08/28/18 22:24 Ur Leukocyte Esterase 1+ Jonathan/uL (Negative) H 08/28/18 22:24 Urine WBC (Auto) 14 /hpf (0-5) H 08/28/18 22:24 Urine RBC (Auto) 1 /hpf (0-3) 08/28/18 22:24 Ur Squamous Epith Cells 3 /hpf (0-5) 08/28/18 22:24 Urine Bacteria Rare (<OCC) 08/28/18 22:24 Rheumatoid Factor IgG <5 U (<=6) 08/29/18 07:46 Rheumatoid Factor IgA <5 U (<=6) 08/29/18 07:46 Rheumatoid Factor IgM <5 U (<=6) 08/29/18 07:46 Cycl Citrul Peptide IgG <16 Units 08/29/18 07:46 DAYLIN 6 Profile Positive (NEGATIVE) H 08/29/18 07:46 DAYLIN Titer 1:40 H 08/29/18 07:46 DAYLIN Pattern Nucleolar H 08/29/18 07:46 Anti-Streptolysin O Ab Negative (NEGATIVE) 08/29/18 07:46 - Hospital Course Hospital Course: 82 years old female was brought by the family to the ED at [facility] complaining of pain in the left knee and weakness of the left leg for one day. She denies any recent fall, trauma to the left leg. She denies any headache, nausea, vomiting, any weakness of the upper extremities. She is known to have a non-insulin dependent diabetes mellitus, a hypertension, a hypercholesterolemia, a vitamin D defiency, a seizures disorder, a generalized osteoarthritis prompting her to walk with a walker. In the ED, her vital signs were normal. WBC: 6.6 Hgb: 11.7 Plt: 236,000 Na+: 140 K+: 4.2 BUN: 27 Creatinine: 1.0 Glucose: 119 Thyroid profile: WNL HgbA1C: 6.5. Her ECG: RSR with a left axis deviation and LVH, CXR: No acute infiltrate. CT scan of the pelvis and lower extremities revealed severe degenerative joint disease of the hips and knees. The patient was evaluated by Dr Trujillo ( Rheumatology) who suggested intra- articular steroids injection to the left knee if the pain is not controlled by usual analgesics. She was also evaluated by Dr Mitch Sylvester ( Neurology ) who ordered an MRI of the head without contrast, a carotid duplex scan, an echocardiogram. The carotid scan and the echocardiogram were essentially unremarkable, The head MRI revealed a small acute infarct of the right external capsule posteriorly, ch ronic lacunar infarcts of the left thalamus, the cerebellum. She was put back on all her home medications, including ASA and Keppra,Tylenol, and started on PT and OT. Her left knee pain and her left leg weakness improved. She was tranferred to [facility] on 09/04/2018 for further PT and OT - Date & Time of H&P Date of H&P: 08/28/18 Discharge Exam - Head Exam Head Exam: NORMAL INSPECTION - Eye Exam Eye Exam: Normal appearance Pupil Exam: NORMAL ACCOMODATION - ENT Exam ENT Exam: Normal Exam - Neck Exam Neck exam: Normal Inspection - Respiratory Exam Respiratory Exam: Clear to PA & Lateral, NORMAL BREATHING PATTERN, UNREMARKABLE - Cardiovascular Exam Cardiovascular Exam: REGULAR RHYTHM - GI/Abdominal Exam GI & Abdominal Exam: Normal Bowel Sounds, Soft - Rectal Exam Rectal Exam: Deferred - Extremities Exam Additional comments: Weakness of the left leg. Mild tenderness of both knees. - Back Exam Back exam: NORMAL INSPECTION - Neurological Exam Neurological exam: Abnormal Gait, Alert, Oriented x3 - Psychiatric Exam Psychiatric exam: Anxious - Skin Skin Exam: Dry, Intact, Normal Color, Warm Discharge Plan - Follow Up Plan Condition: FAIR Disposition: REHAB FACILITY/REHAB UNIT Instructions: Stroke, Heart Failure, Adult (DC), Radiculopathy (DC) Additional Instructions: PLACE UNDER THE SERVICE OF DR MERCER AT [facility]-----CALL FOR ADMITTING ORDER CONTINUE HOME MEDICATION PER MED REC ACTIVITY TOLERATED AND FACILITY PROTOCOL CALL DR MERCER FOR FURTHER ORDER Referrals: Wang Trujillo MD [Staff Provider] - Danuta Sylvester MD [Staff Provider] - Jonh Mercer MD [Staff Provider] - Clinical Quality Measures - CQM - Stroke Contranindication/Reason for not providing: Risk for Bleeding Anticoagulation Prescribed for Atrial Flutter, Atrial Fibrillation and History of:: Not Applicable Contraindication/Reason for not providing: Statin Allergy - CQM - Heart Failure Will be discharged to: Nursing Home Facility Follow Up Date (must be within 7 days from discharge): 09/11/18 Follow Up Time: 14:00 - Date & Time of Discharge Summary Date of Discharge Summary: 09/06/18 Time of Discharge Summary: 08:38
== END 2018-09-04 20:10 | DRG 551 ==
LOC: C.ER 19:12 → C.9E 22:54 → C.5S 08-28 14:18
PROVIDERS: ADMIT Internal Medicine Cardiovascular Disease; ATTEND Internal Medicine Cardiovascular Disease
DX: M54.16 Radiculopathy, lumbar region (principal); I63.9 Cerebral infarction, unspecified; I13.0 Hypertensive heart and chronic kidney disease with heart failure and stage 1 through stage 4 chronic kidney disease, or unspecified chronic kidney disease; G81.94 Hemiplegia, unspecified affecting left nondominant side; R29.701 NIHSS score 1; I27.20 Pulmonary hypertension, unspecified; I50.9 Heart failure, unspecified; N18.9 Chronic kidney disease, unspecified; I25.10 Atherosclerotic heart disease of native coronary artery without angina pectoris; F03.90 Unspecified dementia, unspecified severity, without behavioral disturbance, psychotic disturbance, mood disturbance, and anxiety; G40.909 Epilepsy, unspecified, not intractable, without status epilepticus; E78.5 Hyperlipidemia, unspecified; E11.22 Type 2 diabetes mellitus with diabetic chronic kidney disease; H40.9 Unspecified glaucoma; M16.0 Bilateral primary osteoarthritis of hip; M17.0 Bilateral primary osteoarthritis of knee; M17.12 Unilateral primary osteoarthritis, left knee; Z79.84 Long term (current) use of oral hypoglycemic drugs

== ENCOUNTER 2018-09-20 21:41 | Inpatient (IN) | payer MEDICARE ==
[2018-09-20 21:41] VITALS: BMI 25.6
[2018-09-20 22:42] LABS: BASO # 0.1 K/uL (0.0-0.2); EOS # 0.2 K/uL (0.0-0.7); EOS % 2.5 % (0.0-4.0); HEMOGLOBIN 11.2 g/dL (11.0-16.0); LYMPH # 1.2 K/uL (1.0-4.3); LYMPH % 13.4 % (20.0-40.0); MEAN CELL VOLUME 88.2 fL (81.0-99.0); MEAN CORPUSCULAR HEMOGLOBIN 29.1 pg (27.0-31.0); MEAN PLATELET VOLUME 9.4 fL (7.2-11.7); NEUT # 6.4 K/uL (1.8-7.0); NEUT % 72.1 % (50.0-75.0); NRBC % 0.1 % (0.0-2.0); RBC 3.85 Mil/uL (3.80-5.20); RED CELL DISTRIBUTION WIDTH 16.6 % (11.5-14.5); WHITE BLOOD COUNT 8.8 K/uL (4.8-10.8)
--- NOTE | 2018-09-20 22:46 | C.PDOC ---
History Of Present Illness 82 year old female demented with daughter at bedside sent from nursing facility for elevated liver function. Patient had labs drawn 2 days ago that showed elevated transaminases, they were repeated yesterday and were still high. Susi cabrales has no pain at this time, eating normally, denies Hx of similar complaints. Time Seen by Provider: 09/20/18 21:54 Chief Complaint (Nursing): Abnormal Labs History Per: Patient History/Exam Limitations: no limitations Onset/Duration Of Symptoms: Days Current Symptoms Are (Timing): Still Present Recent travel outside of the [place]: No Additional History Per: Assisted Past Medical History Reviewed: Historical Data, Nursing Documentation, Vital Signs Vital Signs: Last Vital Signs Temp 99.8 F H 09/20/18 21:44 Pulse 83 09/20/18 21:44 Resp 22 09/20/18 21:44 BP 167/92 H 09/20/18 21:44 Pulse Ox 97 09/20/18 21:44 - Medical History PMH: Arthritis, CHF, Dementia, HTN, Hypercholesterolemia, Hyperlipidemia, Seizures Denies: Chronic Kidney Disease Surgical History: Cholecystectomy - [facility] Procedures EXERCISE TRMT MUSCULOSK LOW BACK/LE W ASSIST EQUIP (07/23/15) GAIT TRAINING/AMBULAT TREATMENT USING ASSIST EQUIPMENT (07/23/15) GROOMING/PERSONAL HYGIENE TREATMENT USING ASSIST EQUIPMENT (07/23/15) Family History: States: Unknown Family Hx - Social History Hx Tobacco Use: No Hx Alcohol Use: No Hx Substance Use: No - Immunization History Hx Tetanus Toxoid Vaccination: Yes Hx Influenza Vaccination: Yes Hx Pneumococcal Vaccination: Yes Review Of Systems Constitutional: Negative for: Fever Cardiovascular: Negative for: Chest Pain, Palpitations Respiratory: Negative for: Cough, Shortness of Breath Gastrointestinal: Negative for: Nausea, Vomiting, Abdominal Pain Neurological: Negative for: Weakness, Numbness Physical Exam - Physical Exam Appears: Non-toxic Skin: Warm, Jaundice Head: Atraumatic, Normacephalic Oral Mucosa: Moist Neck: Normal, Supple Chest: Symmetrical, No Tenderness Cardiovascular: Rhythm Regular Respiratory: Normal Breath Sounds, No Rales, No Rhonchi, No Wheezing Gastrointestinal/Abdominal: Soft, No Tenderness, No Distention Back: No CVA Tenderness Neurological/Psych: Normal Speech, Other (Awake, alert) ED Course And Treatment - Laboratory Results Result Diagrams: 09/20/18 22:39 09/20/18 22:39 Lab Interpretation: Abnormal (elevated LFts with bili 3.5) O2 Sat by Pulse Oximetry: 97 (Room air) Pulse Ox Interpretation: Normal Progress Note: Blood work and UA ordered. Reevaluation Time: 23:30 Reassessment Condition: Unchanged - Physician Consult Information Time Consulting Physician Contacted: 23:30 Physician Contacted: Jonh Mercer Outcome Of Conversation: Patient to b e admitted for evaluation of elevated LFTs and consultation with Dr Bolden. Disposition - Disposition Disposition: HOSPITALIZED Disposition Time: 23:31 Condition: FAIR - POA Present On Arrival: None - Clinical Impression Clinical Impression: Elevated LFTs, Dementia - Scribe Statement The provider has reviewed the documentation as recorded by the Scribe Esteban Byrd All medical record entries made by the Binhibnegrita were at my direction and personally dictated by me. I have reviewed the chart and agree that the record accurately reflects my personal performance of the history, physical exam, medical decision making, and the department course for this patient. I have also personally directed, reviewed, and agree with the discharge instructions and disposition.
[2018-09-20 22:51] LABS: INR 1.2; PROTHROMBIN TIME 12.7 SECONDS (9.7-12.2)
[2018-09-20 22:59] LABS: ALT/SGPT 694 U/L (9-52); AMYLASE 87 U/L (30-110); BLOOD UREA NITROGEN 15 mg/dL (7-17); CALCIUM 8.8 mg/dl (8.6-10.4); GFR NON-AFRICAN AMERICAN 60; LIPASE 182 U/L (23-300)
[2018-09-20 23:08] LABS: AST/SGOT 710 U/L (14-36)
[2018-09-20] MEDS ORDERED: Iohexol 240 (50 ml) PO ONE (23:27)
[2018-09-20] MEDS ORDERED: Iohexol 240 (50 ml) ONE (23:43)
[2018-09-21] MEDS ORDERED: Iodixanol 320 MG/ML 100 ML BOTTLE IV ONE (01:50)
[2018-09-21] MEDS: (Novolog) Insulin Aspart, Recombinant 100 u/ml 10 ml vial SC SCH ×4 (08:11→21:40)
[2018-09-21 09:22] LABS: SQUAMOUS EPITHIAL 14 /hpf (0-5); URINE BACTERIA RARE (<OCC); URINE BILIRUBIN NEGATIVE (NEGATIVE); URINE BLOOD NEGATIVE (NEGATIVE); URINE CLARITY Hazy (Clear); URINE COLOR Amber (YELLOW); URINE GLUCOSE (UA) NORMAL (Normal); URINE LEUKOCYTE ESTERASE 2+ Leu/uL (Negative); URINE PROTEIN 1+ mg/dL (NEGATIVE)
[2018-09-21] MEDS: Enoxaparin 40 mg Syringe SC SCH (10:47)
[2018-09-21 12:05] LABS: ALBUMIN 3.5 g/dL (3.5-5.0); ALT/SGPT 626 U/L (9-52); BLOOD UREA NITROGEN 12 mg/dL (7-17); CALCIUM 8.3 mg/dl (8.6-10.4); GFR NON-AFRICAN AMERICAN 53
[2018-09-21 12:45] LABS: AST/SGOT 740 U/L (14-36)
--- NOTE | 2018-09-21 12:51 | US ---
Date of service: 09/21/2018 HISTORY: elevated LFT COMPARISON: None. TECHNIQUE: Grayscale imaging was performed. FINDINGS: LIVER: Measures 12.9 cm. Normal echogenicity of the liver parenchyma. No mass. No intrahepatic bile duct dilatation. GALLBLADDER: Surgically absent. COMMON BILE DUCT: Measures 3.5 mm. No stones. No dilatation. PANCREAS: Unremarkable as visualized. No mass. No ductal dilatation. RIGHT KIDNEY: Measures 10.9cm. Normal echogenicity. No calculus, mass, or hydronephrosis. LEFT KIDNEY: Measures 10.2cm. Normal echogenicity. No calculus, mass, or hydronephrosis. SPLEEN: Normal in size and contour. No mass. AORTA: No aneurysmal dilatation. IVC: Unremarkable. OTHER FINDINGS: None. IMPRESSION: Fatty liver. Status post cholecystectomy, no biliary dilatation.
--- NOTE | 2018-09-21 13:47 | CT ---
Date of service: 09/21/2018 PROCEDURE: CT Abdomen and Pelvis with contrast HISTORY: elevated LFTs COMPARISON: None. TECHNIQUE: Contrast dose: 100 mL Visipaque 320 Radiation dose: Total exam DLP = 722.83 mGy-cm. This CT exam was performed using one or more of the following dose reduction techniques: Automated exposure control, adjustment of the mA and/or kV according to patient size, and/or use of iterative reconstruction technique. FINDINGS: LOWER THORAX: Very small hiatal hernia. No infiltrate/effusion. LIVER: Unremarkable. No gross lesion or ductal dilatation. GALLBLADDER AND BILE DUCTS: Status post cholecystectomy PANCREAS: Unremarkable. No gross lesion or ductal dilatation. SPLEEN: Unremarkable. ADRENALS: Unremarkable. No mass. KIDNEYS AND URETERS: Unremarkable. No hydronephrosis. No solid mass. VASCULATURE: Unremarkable. No aortic aneurysm. There is atherosclerotic calcification of the abdominal aorta. BOWEL: Sigmoid diverticulosis without evidence of diverticulitis. No bowel obstruction. No other abnormal bowel loops are identified. APPENDIX: Normal appendix. PERITONEUM: Unremarkable. No free fluid. No free air. LYMPH NODES: Unremarkable. No enlarged lymph nodes. BLADDER: Unremarkable. REPRODUCTIVE: Normal postmenopausal uterus. There is a coarse calcification within the uterus most likely representing a degenerated calcified fibroid. BONES: No acute fracture. OTHER FINDINGS: None. IMPRESSION: No evidence of biliary obstruction. Status post cholecystectomy. Small hiatal hernia. Probable calcified uterine fibroid. Sigmoid diverticulosis without evidence of diverticulitis.
--- NOTE | 2018-09-21 15:14 | CP.PCM.CON ---
History of Present Illness - History of Present Illness History of Present Illness: This is an 82 year old woman with elevated liver enzymes. Patient was hospitalized for CVA last month, nad liver enzymes were normal: On 08/27/18, AST 23, ALT 15, ALKP 101, TBILI 0.3. Elevated LFTs were noted at [facility] on 09/18/18: AST >500, ALT >500, ALKP 889, TBILI 2.89. Patient denies having nausea, vomiting, abdominal pain, loss of appetite, loss of weight, difficulty swallowing, heartburn, diarrhea, rectal bleeding. She has chronic constipation for which she takes stool softeners. Evaluation in the ER included CT scan which showed S/P cholecystectomy but no abnormalities of the liver, and sonogram which showed normal CBD and fatty liver. Review of Systems - Review of Systems All systems: reviewed and no additional remarkable complaints except - Constitutional Constitutional: absent: Fever - Cardiovascular Cardiovascular: absent: Chest Pain, Palpitations - Respiratory Respiratory: absent: Cough, Dyspnea - Gastrointestinal Gastrointestinal: Constipation. absent: Abdominal Pain, Diarrhea, Dysphagia, Heartburn, Hematochezia, Nausea, Vomiting Past Patient History - Infectious Disease Hx of Infectious Diseases: None - Tetanus Immunizations Tetanus Immunization: Unknown - Past Medical History & Family History Past Medical History?: Yes - Past Social History Smoking Status: Never Smoked - CARDIAC Hx Congestive Heart Failure: Yes Hx Hypercholesterolemia: Yes Hx Hypertension: Yes - PULMONARY Hx Respiratory Disorders: No - NEUROLOGICAL Hx Dementia: Yes Hx Seizures: Yes - HEENT Hx HEENT Problems: Yes Hx Cataracts: Yes (Bilat eyes) Hx Glaucoma: Yes - RENAL Hx Chronic Kidney Disease: No - ENDOCRINE/METABOLIC Hx Diabetes Mellitus Type 2: Yes - HEMATOLOGICAL/ONCOLOGICAL Hx Blood Disorders: No - INTEGUMENTARY Hx Dermatological Problems: No - MUSCULOSKELETAL/RHEUMATOLOGICAL Hx Arthritis: Yes - GASTROINTESTINAL Hx Gastrointestinal Disorders: No - GENITOURINARY/GYNECOLOGICAL Hx Genitourinary Disorders: No - PSYCHIATRIC Hx Substance Use: No - SURGICAL HISTORY Hx Cholecystectomy: Yes - ANESTHESIA Hx Anesthesia: Yes Hx Anesthesia Reactions: No Meds Allergies/Adverse Reactions: Allergies Allergy/AdvReac Type Severity Reaction Status Date / Time No Known Allergies Allergy Verified 09/20/18 21:50 - Medications Medications: Current Medications Amlodipine Besylate (Norvasc) 10 mg PO DAILY [facility] Last Admin: 09/21/18 10:46 Dose: 10 mg Docusate Sodium (Colace) 100 mg PO BID [facility] Last Admin: 09/21/18 10:46 Dose: 100 mg Enoxaparin Sodium (Lovenox) 40 mg SC DAILY [facility] Last Admin: 09/21/18 10:47 Dose: 40 mg Insulin Aspart (Novolog) 0 unit SC [facility]; Protocol Last Admin: 09/21/18 12:18 Dose: 2 units Levetiracetam (Keppra) 500 mg PO BID [facility] Last Admin: 09/21/18 10:47 Dose: 500 mg Losartan Potassium (Cozaar) 100 mg PO DAILY [facility] Last Admin: 09/21/18 10:46 Dose: 100 mg [facility] Last Admin: 09/21/18 10:46 Dose: 500 mg Physical Exam - Constitutional Appears: No Acute Distress - Head Exam Head Exam: ATRAUMATIC, NORMOCEPHALIC - Eye Exam Eye Exam: EOMI, PERRL - Neck Exam Neck exam: Negative for: Lymphadenopathy, Thyromegaly - Respiratory Exam Respiratory Exam: NORMAL BREATHING PATTERN. absent: Rales, Rhonchi, Wheezes - Cardiovascular Exam Cardiovascular Exam: REGULAR RHYTHM, +S1, +S2. absent: Gallop, Rubs, Systolic Murmur - GI/Abdominal Exam GI & Abdominal Exam: Normal Bowel Sounds, Soft. absent: Mass, Organomegaly, Tenderness - Rectal Exam Rectal Exam: Deferred - Extremities Exam Extremities exam: Negative for: calf tenderness, pedal edema Results - Vital Signs Recent Vital Signs: Last Vital Signs Temp 99.9 F H 09/21/18 07:20 Pulse 70 09/21/18 07:20 Resp 20 09/21/18 07:20 BP 156/87 H 09/21/18 07:20 Pulse Ox 96 09/21/18 07:20 - Labs Result Diagrams: 09/20/18 22:39 09/21/18 11:36 Labs: Laboratory Results - last 24 hr 09/20/18 09/20/18 09/20/18 21:46 22:39 22:39 WBC 8.8 RBC 3.85 Hgb 11.2 Hct 33.9 L MCV 88.2 MCH 29.1 MCHC 33.0 RDW 16.6 H Plt Count 282 MPV 9.4 Neut % (Auto) 72.1 Lymph % (Auto) 13.4 L [place] % (Auto) 11.0 H Eos % (Auto) 2.5 Baso % (Auto) 1.0 Neut # (Auto) 6.4 Lymph # (Auto) 1.2 [place] # (Auto) 1.0 H Eos # (Auto) 0.2 Baso # (Auto) 0.1 PT 12.7 H INR 1.2 APTT 38 H Sodium Potassium Chloride Carbon Dioxide Anion Gap BUN Creatinine Est GFR ( Amer) Est GFR (Non-Af Amer) POC Glucose (mg/dL) 206 H Random Glucose Calcium Total Bilirubin AST ALT Alkaline Phosphatase Total Protein Albumin Globulin Albumin/Globulin Ratio Amylase Lipase Urine Color Urine Clarity Urine pH Ur Specific [place] Urine Protein Urine Glucose (UA) Urine Ketones Urine Blood Urine Nitrate Urine Bilirubin Urine Urobilinogen Ur Leukocyte Esterase Urine WBC (Auto) Urine RBC (Auto) Ur Squamous Epith Cells Urine Bacteria 09/20/18 09/21/18 09/21/18 22:39 01:57 07:11 WBC RBC Hgb Hct MCV MCH MCHC RDW Plt Count MPV Neut % (Auto) Lymph % (Auto) [place] % (Auto) Eos % (Auto) Baso % (Auto) Neut # (Auto) Lymph # (Auto) [place] # (Auto) Eos # (Auto) Baso # (Auto) PT INR APTT Sodium 137 Potassium 4.5 Chloride 102 Carbon Dioxide 25 Anion Gap 15 BUN 15 Creatinine 0.9 Est GFR ( Amer) > 60 Est GFR (Non-Af Amer) 60 POC Glucose (mg/dL) 115 H 157 H Random Glucose 187 H D Calcium 8.8 Total Bilirubin 3.5 H AST 710 H D ALT 694 H D Alkaline Phosphatase 945 H D Total Protein 8.1 Albumin 4.0 Globulin 4.1 H Albumin/Globulin Ratio 1.0 Amylase 87 Lipase 182 Urine Color Urine Clarity Urine pH Ur Specific [place] Urine Protein Urine Glucose (UA) Urine Ketones Urine Blood Urine Nitrate Urine Bilirubin Urine Urobilinogen Ur Leukocyte Esterase Urine WBC (Auto) Urine RBC (Auto) Ur Squamous Epith Cells Urine Bacteria 09/21/18 09/21/18 09/21/18 08:49 11:11 11:36 WBC RBC Hgb Hct MCV MCH MCHC RDW Plt Count MPV Neut % (Auto) Lymph % (Auto) [place] % (Auto) Eos % (Auto) Baso % (Auto) Neut # (Auto) Lymph # (Auto) [place] # (Auto) Eos # (Auto) Baso # (Auto) PT INR APTT Sodium 135 Potassium 4.0 Chloride 100 Carbon Dioxide 26 Anion Gap 13 BUN 12 Creatinine 1.0 Est GFR ( Amer) > 60 Est GFR (Non-Af Amer) 53 POC Glucose (mg/dL) 229 H Random Glucose 215 H Calcium 8.3 L Total Bilirubin 3.1 H AST 740 H ALT 626 H Alkaline Phosphatase 853 H Total Protein 6.9 Albumin 3.5 Globulin 3.5 Albumin/Globulin Ratio 1.0 Amylase Lipase Urine Color Karli Urine Clarity Hazy Urine pH 5.0 Ur Specific [place] 1.040 H Urine Protein 1+ H Urine Glucose (UA) Normal Urine Ketones Negative Urine Blood Negative Urine Nitrate Negative Urine Bilirubin Negative Urine Urobilinogen 4.0 H Ur Leukocyte Esterase 2+ H Urine WBC (Auto) 48 H Urine RBC (Auto) 3 Ur Squamous Epith Cells 14 H Urine Bacteria Rare Assessment & Plan (1) Elevated LFTs Assessment and Plan: Patient has elevated transaminases and alkaline phosphatase which were not prese nt one month ago. The AST and ALT are 15-20 times the ULN, and the ALKP is 3-4 times the ULN. There is primarily hepatocellular injury but cholestasis is present as well. the imaging studies show no evidence of biliary obstruction or venous thrombosis. Will check hepatitis serology. This is most likely related to drug-induced hepatotoxicity, perhaps from atorvastatin, keppra, or losartan. Status: Acute
--- NOTE | 2018-09-21 23:39 | CP.PCM.HP ---
History of Present Illness - History of Present Illness History of Present Illness: 82 years old female was transferred from [facility] to the ED at [facility] because of a low grade fever for the past few days with elevated liver enzymes. She denies any nausea, vomiting, burning mictura tion, Three weeks ago, the patient was hospitalized for a left leg weakness from an acute CVA, Known to have a NIDDM, a Hypertension, a senile dementia, a seizures disorders, a degenerative joint disease of the knees. According to the patient's daughter, the patient became weaker with poor appetite for the past few days. In the ED, a CTscan of the abdomen revealed a s/p cholecystectomy, otherwise, unremarkable. An US of the abdomen also revealed a fatty liver, but no common bile duct dilatation. A UA revealed 2 + leukocytes esterase. Lipitor, Zetia were discontinued. The patient was started empirically on Rocephin 1 g IVPB qd, after urine and blood cultures were done. Present on Admission - Present on Admission Any Indicators Present on Admission: No Review of Systems - Constitutional Constitutional: Anorexia, Fever, Weakness - Musculoskeletal Musculoskeletal: Muscle Weakness Past Patient History - Infectious Disease Hx of Infectious Diseases: None - Tetanus Immunizations Tetanus Immunization: Unknown - Past Medical History & Family History Past Medical History?: Yes - Past Social History Smoking Status: Unknown If Ever Smoked Alcohol: None Drugs: Denies Home Situation {Lives}: With Family Domestic Violence: Negative - CARDIAC Hx Congestive Heart Failure: Yes Hx Hypercholesterolemia: Yes Hx Hypertension: Yes - PULMONARY Hx Respiratory Disorders: No - NEUROLOGICAL HX Cerebrovascular Accident: Yes ( on 08/2018 witha left leg weakness.) Hx Dementia: Yes Hx Seizures: Yes - HEENT Hx HEENT Problems: Yes Hx Cataracts: Yes (Bilat eyes) Hx Glaucoma: Yes - RENAL Hx Chronic Kidney Disease: No - ENDOCRINE/METABOLIC Hx Diabetes Mellitus Type 2: Yes - HEMATOLOGICAL/ONCOLOGICAL Hx Blood Disorders: No - INTEGUMENTARY Hx Dermatological Problems: No - MUSCULOSKELETAL/RHEUMATOLOGICAL Hx Arthritis: Yes Hx Falls: No Hx Osteoarthritis: Yes Hx Osteoporosis: Yes Hx Unsteady Gait: Yes - GASTROINTESTINAL Hx Gastrointestinal Disorders: No Hx Gall Bladder Disease: Yes (s/p cholecystectomy) - GENITOURINARY/GYNECOLOGICAL Hx Genitourinary Disorders: No - PSYCHIATRIC Hx Substance Use: No - SURGICAL HISTORY Hx Surgeries: Yes (s/p cholecystectomy) Hx Cholecystectomy: Yes - ANESTHESIA Hx Anesthesia: Yes Hx Anesthesia Reactions: No Meds Allergies/Adverse Reactions: Allergies Allergy/AdvReac Type Severity Reaction Status Date / Time No Known Allergies Allergy Verified 09/20/18 21:50 Physical Exam - Constitutional Appears: No Acute Distress, Chronically Ill - Head Exam Head Exam: NORMAL INSPECTION - Eye Exam Eye Exam: Normal appearance - ENT Exam ENT Exam: Normal Exam - Neck Exam Neck exam: Positive for: Normal Inspection - Respiratory Exam Respiratory Exam: Clear to Auscultation Bilateral, NORMAL BREATHING PATTERN - Cardiovascular Exam Cardiovascular Exam: REGULAR RHYTHM - GI/Abdominal Exam GI & Abdominal Exam: Normal Bowel Sounds, Soft - Rectal Exam Rectal Exam: Deferred - Extremities Exam Extremities exam: Positive for: normal inspection - Neurological Exam Neurological exam: Abnormal Gait, Alert, Oriented x3 Additional comments: Weakness of the left leg. - Psychiatric Exam Psychiatric exam: Anxious - Skin Skin Exam: Dry, Intact, Normal Color, Warm Results - Vital Signs Recent Vital Signs: Last Vital Signs Temp 100.1 F H 09/21/18 18:21 Pulse 88 09/21/18 16:00 Resp 18 09/21/18 16:00 BP 138/76 09/21/18 16:00 Pulse Ox 96 09/21/18 16:00 - Labs Result Diagrams: 09/20/18 22:39 09/21/18 11:36 Labs: Laboratory Results - last 24 hr 09/21/18 09/21/18 09/21/18 01:57 07:11 08:49 Sodium Potassium Chloride Carbon Dioxide Anion Gap BUN Creatinine Est GFR ( Amer) Est GFR (Non-Af Amer) POC Glucose (mg/dL) 115 H 157 H Random Glucose Calcium Total Bilirubin AST ALT Alkaline Phosphatase Total Protein Albumin Globulin Albumin/Globulin Ratio Urine Color Karli Urine Clarity Hazy Urine pH 5.0 Ur Specific [place] 1.040 H Urine Protein 1+ H Urine Glucose (UA) Normal Urine Ketones Negative Urine Blood Negative Urine Nitrate Negative Urine Bilirubin Negative Urine Urobilinogen 4.0 H Ur Leukocyte Esterase 2+ H Urine WBC (Auto) 48 H Urine RBC (Auto) 3 Ur Squamous Epith Cells 14 H Urine Bacteria Rare 09/21/18 09/21/18 09/21/18 11:11 11:36 16:20 Sodium 135 Potassium 4.0 Chloride 100 Carbon Dioxide 26 Anion Gap 13 BUN 12 Creatinine 1.0 Est GFR ( Amer) > 60 Est GFR (Non-Af Amer) 53 POC Glucose (mg/dL) 229 H 121 H Random Glucose 215 H Calcium 8.3 L Total Bilirubin 3.1 H AST 740 H ALT 626 H Alkaline Phosphatase 853 H Total Protein 6.9 Albumin 3.5 Globulin 3.5 Albumin/Globulin Ratio 1.0 Urine Color Urine Clarity Urine pH Ur Specific [place] Urine Protein Urine Glucose (UA) Urine Ketones Urine Blood Urine Nitrate Urine Bilirubin Urine Urobilinogen Ur Leukocyte Esterase Urine WBC (Auto) Urine RBC (Auto) Ur Squamous Epith Cells Urine Bacteria 09/21/18 20:53 Sodium Potassium Chloride Carbon Dioxide Anion Gap BUN Creatinine Est GFR ( Amer) Est GFR (Non-Af Amer) POC Glucose (mg/dL) 151 H Random Glucose Calcium Total Bilirubin AST ALT Alkaline Phosphatase Total Protein Albumin Globulin Albumin/Globulin Ratio Urine Color Urine Clarity Urine pH Ur Specific [place] Urine Protein Urine Glucose (UA) Urine Ketones Urine Blood Urine Nitrate Urine Bilirubin Urine Urobilinogen Ur Leukocyte Esterase Urine WBC (Auto) Urine RBC (Auto) Ur Squamous Epith Cells Urine Bacteria Assessment & Plan (1) Elevated LFTs Assessment and Plan: Etiology unclear. To discontinue Statins and Zetia. Serial serum liver enzymes. Status: Acute (2) UTI (urinary tract infection) Assessment and Plan: Start on Rocephin IV qd. Urine and blood cultures. Status: Acute (3) Acute right arterial ischemic stroke, MANAGED CARE ANALYST (posterior cerebral artery) Assessment and Plan: To continue physical and occupational therapy. Status: Acute (4) Non-insulin dependent type 2 diabetes mellitus Assessment and Plan: To continue Metformin. Status: Chronic Decision To Admit - Pt Status Changed To: Hospital Disposition Of: Inpatient - Admit Certification Admit to Inpatient:: After my assessment, the patient will require hospitalization for at least two midnights. This is because of the severity of symptoms shown, intensity of services needed, and/or the medical risk in this patient being treated as an outpatient. - InPatient: Physician Admission Certification:: After my assessments, the patient requires hospitalization for at least 2 midnights. - . Bed Request Type: Regular Admitting Physician: Jonh Mercer
[2018-09-22 01:41] VITALS: RESP 20
[2018-09-22 07:38] LABS: BASO # 0.1 K/uL (0.0-0.2); BASO % 0.9 % (0.0-2.0); EOS # 0.2 K/uL (0.0-0.7); HEMOGLOBIN 10.3 g/dL (11.0-16.0); LYMPH # 1.1 K/uL (1.0-4.3); LYMPH % 14.1 % (20.0-40.0); MEAN CELL VOLUME 87.3 fL (81.0-99.0); MEAN CORPUSCULAR HEMOGLOBIN 29.7 pg (27.0-31.0); MEAN PLATELET VOLUME 9.2 fL (7.2-11.7); MONO # 0.9 K/uL (0.0-0.8); MONO % 11.6 % (0.0-10.0); NEUT # 5.6 K/uL (1.8-7.0); NEUT % 70.4 % (50.0-75.0); RBC 3.47 Mil/uL (3.80-5.20); RED CELL DISTRIBUTION WIDTH 16.5 % (11.5-14.5); WHITE BLOOD COUNT 7.9 K/uL (4.8-10.8)
[2018-09-22 07:42] LABS: ALB/GLOB RATIO 0.9 (1.0-2.1); ALBUMIN 3.5 g/dL (3.5-5.0); BILIRUBIN,DIRECT 2.8 mg/dL (0.0-0.4); CALCIUM 8.6 mg/dl (8.6-10.4)
[2018-09-22 07:49] LABS: INR 1.2; PROTHROMBIN TIME 13.4 SECONDS (9.7-12.2)
[2018-09-22] MEDS: (Novolog) Insulin Aspart, Recombinant 100 u/ml 10 ml vial SC SCH ×4 (08:00→21:11)
[2018-09-22 08:15] LABS: HEPATITIS B SURFACE AG Negative (NEGATIVE)
[2018-09-22 08:21] LABS: HEPATITIS A IGM NEGATIVE (NEGATIVE); HEPATITIS B CORE AB NEGATIVE (NEGATIVE)
--- NOTE | 2018-09-22 08:22 | CP.PCM.PN ---
Subjective - Date & Time of Evaluation Date of Evaluation: 09/22/18 Time of Evaluation: 08:19 - Subjective Subjective: Patient denies having nausea, vomiting, abdominal pain. She has not had a bowel movement so far today. Objective - Vital Signs/Intake and Output Vital Signs (last 24 hours): Temp Pulse Resp BP Pulse Ox 98.1 F 71 20 152/74 H 96 09/22/18 00:00 09/22/18 00:00 09/22/18 00:00 09/22/18 00:00 09/22/18 00:00 Intake and Output: 09/22/18 09/22/18 06:59 18:59 Intake Total 520 Balance 520 - Medications Medications: Current Medications Acetaminophen (Tylenol 325mg Tab) 650 mg PO Q6 PRN PRN Reason: Fever >100.4 F Last Admin: 09/21/18 17:21 Dose: 650 mg Amlodipine Besylate (Norvasc) 10 mg PO DAILY [facility] Last Admin: 09/21/18 10:46 Dose: 10 mg Docusate Sodium (Colace) 100 mg PO BID [facility] Last Admin: 09/21/18 17:21 Dose: 100 mg Enoxaparin Sodium (Lovenox) 40 mg SC DAILY [facility] Last Admin: 09/21/18 10:47 Dose: 40 mg Insulin Aspart (Novolog) 0 unit SC [facility]; Protocol Last Admin: 09/22/18 08:00 Dose: Not Given Levetiracetam (Keppra) 500 mg PO BID [facility] Last Admin: 09/21/18 17:20 Dose: 500 mg Losartan Potassium (Cozaar) 100 mg PO DAILY [facility] Last Admin: 09/21/18 10:46 Dose: 100 mg [facility] Last Admin: 09/22/18 08:10 Dose: 500 mg - Labs Labs: 09/22/18 07:15 09/22/18 07:15 PT 13.4 SECONDS (9.7-12.2) H 09/22/18 07:15 INR 1.2 09/22/18 07:15 APTT 38 SECONDS (21-34) H 09/20/18 22:39 - Constitutional Appears: No Acute Distress - Head Exam Head Exam: ATRAUMATIC, NORMOCEPHALIC - Eye Exam Eye Exam: EOMI, PERRL - Neck Exam Neck Exam: absent: Lymphadenopathy - Respiratory Exam Respiratory Exam: NORMAL BREATHING PATTERN. absent: Rales, Rhonchi, Wheezes - Cardiovascular Exam Cardiovascular Exam: REGULAR RHYTHM, +S1, +S2. absent: Gallop, Rubs, Murmur - GI/Abdominal Exam GI & Abdominal Exam: Soft, Normal Bowel Sounds. absent: Tenderness, Mass, Organomegaly - Rectal Exam Rectal Exam: Deferred - Extremities Exam Extremities Exam: absent: Calf Tenderness, Pedal Edema Assessment and Plan (1) Elevated LFTs Assessment & Plan: AST has decreased slightly to 699; ALT is unchanged; ALKP has increased to 996 from 853. PT remains near normal at 13.4, INR 1.2. Will follow LFTs off atorvastatin. We may need to discontinue losartan zuleyka Masters. Status: Acute
[2018-09-22 08:32] LABS: HEPATITIS C ANTIBODY NEGATIVE (NEGATIVE)
[2018-09-22] MEDS: Enoxaparin 40 mg Syringe SC SCH (10:14)
--- NOTE | 2018-09-22 18:25 | CP.PCM.PN ---
Subjective - Date & Time of Evaluation Date of Evaluation: 09/22/18 Time of Evaluation: 18:22 - Subjective Subjective: Patient still with low grade fever and low appetite, and generalized weakness. Serum liver enzymes remains essentially unchanged. To continue IV antibiotics. Objective - Vital Signs/Intake and Output Vital Signs (last 24 hours): Temp Pulse Resp BP Pulse Ox 98.7 F 82 20 163/83 H 95 09/22/18 15:00 09/22/18 15:00 09/22/18 15:00 09/22/18 15:00 09/22/18 15:00 Intake and Output: 09/22/18 09/22/18 06:59 18:59 Intake Total 520 500 Balance 520 500 - Medications Medications: Current Medications Amlodipine Besylate (Norvasc) 10 mg PO DAILY [facility] Last Admin: 09/22/18 10:14 Dose: 10 mg Docusate Sodium (Colace) 100 mg PO BID [facility] Last Admin: 09/22/18 17:21 Dose: 100 mg Enoxaparin Sodium (Lovenox) 40 mg SC DAILY [facility] Last Admin: 09/22/18 10:14 Dose: 40 mg Insulin Aspart (Novolog) 0 unit SC [facility]; Protocol Last Admin: 09/22/18 17:14 Dose: Not Given Levetiracetam (Keppra) 500 mg PO BID [facility] Last Admin: 09/22/18 17:20 Dose: 500 mg Losartan Potassium (Cozaar) 100 mg PO DAILY [facility] Last Admin: 09/22/18 10:13 Dose: 100 mg [facility] Last Admin: 09/22/18 17:20 Dose: 500 mg - Labs Labs: 09/22/18 07:15 09/22/18 07:15 PT 13.4 SECONDS (9.7-12.2) H 09/22/18 07:15 INR 1.2 09/22/18 07:15 APTT 38 SECONDS (21-34) H 09/20/18 22:39 - Constitutional Appears: No Acute Distress, Chronically Ill - Head Exam Head Exam: NORMOCEPHALIC - Eye Exam Eye Exam: Normal appearance - ENT Exam ENT Exam: Normal Exam - Neck Exam Neck Exam: Normal Inspection - Respiratory Exam Respiratory Exam: Clear to Ausculation Bilateral, NORMAL BREATHING PATTERN - Cardiovascular Exam Cardiovascular Exam: REGULAR RHYTHM - GI/Abdominal Exam GI & Abdominal Exam: Soft, Normal Bowel Sounds - Rectal Exam Rectal Exam: Deferred - Exam Exam: NORMAL INSPECTION - Back Exam Back Exam: NORMAL INSPECTION - Neurological Exam Neurological Exam: Alert, Awake, Oriented x3 - Psychiatric Exam Psychiatric exam: Anxious - Skin Skin Exam: Dry, Intact Assessment and Plan (1) Elevated LFTs Assessment & Plan: To F/U liver enzymes. Status: Acute (2) UTI (urinary tract infection) Assessment & Plan: To continue IV antibiotics. Status: Acute (3) Acute right arterial ischemic stroke, DINKEY LOCOMOTIVE OPERATOR (posterior cerebral artery) Status: Acute (4) Non-insulin dependent type 2 diabetes mellitus Status: Chronic
[2018-09-23 07:30] LABS: BASO # 0.1 K/uL (0.0-0.2); BASO % 1.1 % (0.0-2.0); EOS # 0.1 K/uL (0.0-0.7); EOS % 1.8 % (0.0-4.0); HEMOGLOBIN 10.5 g/dL (11.0-16.0); LYMPH # 1.4 K/uL (1.0-4.3); LYMPH % 18.7 % (20.0-40.0); MEAN CELL VOLUME 87.3 fL (81.0-99.0); MEAN CORPUSCULAR HEMOGLOBIN 29.8 pg (27.0-31.0); MEAN CORPUSCULAR HGB CONC 34.1 g/dL (33.0-37.0); MEAN PLATELET VOLUME 8.7 fL (7.2-11.7); MONO # 0.9 K/uL (0.0-0.8); MONO % 11.8 % (0.0-10.0); NEUT # 5.2 K/uL (1.8-7.0); NEUT % 66.6 % (50.0-75.0); NRBC % 0.1 % (0.0-2.0); RBC 3.52 Mil/uL (3.80-5.20); RED CELL DISTRIBUTION WIDTH 16.2 % (11.5-14.5); WHITE BLOOD COUNT 7.7 K/uL (4.8-10.8)
[2018-09-23 07:35] LABS: INR 1.1; PROTHROMBIN TIME 12.1 SECONDS (9.7-12.2)
[2018-09-23] MEDS: (Novolog) Insulin Aspart, Recombinant 100 u/ml 10 ml vial SC SCH ×3 (07:56→16:28)
[2018-09-23 08:40] LABS: ALBUMIN 3.6 g/dL (3.5-5.0); BILIRUBIN,DIRECT 2.7 mg/dL (0.0-0.4); CALCIUM 8.7 mg/dl (8.6-10.4)
[2018-09-23] MEDS: Enoxaparin 40 mg Syringe SC SCH (09:51)
--- NOTE | 2018-09-23 10:51 | CP.PCM.PN ---
Subjective - Date & Time of Evaluation Date of Evaluation: 09/23/18 Time of Evaluation: 10:48 - Subjective Subjective: Patient denies having nausea, vomiting, abdominal pain. She has not had a bowel movement so far today. Objective - Vital Signs/Intake and Output Vital Signs (last 24 hours): Temp Pulse Resp BP Pulse Ox 98.8 F 91 H 20 161/85 H 96 09/23/18 08:44 09/23/18 08:44 09/23/18 08:44 09/23/18 08:44 09/23/18 08:44 Intake and Output: 09/23/18 09/23/18 06:59 18:59 Intake Total 300 Balance 300 - Medications Medications: Current Medications Amlodipine Besylate (Norvasc) 10 mg PO DAILY [facility] Last Admin: 09/23/18 09:52 Dose: 10 mg Docusate Sodium (Colace) 100 mg PO BID [facility] Last Admin: 09/23/18 09:52 Dose: 100 mg Enoxaparin Sodium (Lovenox) 40 mg SC DAILY [facility] Last Admin: 09/23/18 09:51 Dose: 40 mg Insulin Aspart (Novolog) 0 unit SC [facility]; Protocol Last Admin: 09/23/18 07:56 Dose: Not Given Levetiracetam (Keppra) 500 mg PO BID [facility] Last Admin: 09/23/18 09:52 Dose: 500 mg Losartan Potassium (Cozaar) 100 mg PO DAILY [facility] Last Admin: 09/23/18 09:52 Dose: 100 mg [facility]) [facility] Last Admin: 09/23/18 08:22 Dose: 500 mg - Labs Labs: 09/23/18 07:20 09/23/18 07:20 PT 12.1 SECONDS (9.7-12.2) 09/23/18 07:20 INR 1.1 09/23/18 07:20 APTT 38 SECONDS (21-34) H 09/20/18 22:39 - Constitutional Appears: No Acute Distress - Head Exam Head Exam: ATRAUMATIC, NORMOCEPHALIC - Eye Exam Eye Exam: EOMI, PERRL - Neck Exam Neck Exam: absent: Lymphadenopathy, Thyromegaly - Respiratory Exam Respiratory Exam: NORMAL BREATHING PATTERN. absent: Rales, Rhonchi, Wheezes - Cardiovascular Exam Cardiovascular Exam: REGULAR RHYTHM, +S1, +S2. absent: Gallop, Rubs, Murmur - GI/Abdominal Exam GI & Abdominal Exam: Soft, Normal Bowel Sounds. absent: Tenderness, Mass, Organomegaly - Rectal Exam Rectal Exam: Deferred - Extremities Exam Extremities Exam: absent: Calf Tenderness, Pedal Edema Assessment and Plan (1) Elevated LFTs Assessment & Plan: Patient is asymptomatic. The LFTs are improving except for the ALKP: TBILI 3.4 (was 3.5 yesterday), AST 617 (699), ALT 524 (627), ALKP 1151 (996). This indicates a cholestatic (intrahepatic) component to the liver injury. Recommend following LFTs and PT-INR. Status: Acute
--- NOTE | 2018-09-23 18:26 | CP.PCM.PN ---
Subjective - Date & Time of Evaluation Date of Evaluation: 09/23/18 Time of Evaluation: 18:23 - Subjective Subjective: Patient still weak. Had a BM early this AM. Afebrile. Urine and blood cultures so far were negative. Liver enzymes started to decrease slightly. To continue monitoring serum liver enzymes and PT/INR. Objective - Vital Signs/Intake and Output Vital Signs (last 24 hours): Temp Pulse Resp BP Pulse Ox 98.4 F 76 20 152/77 H 95 09/23/18 15:00 09/23/18 15:00 09/23/18 15:00 09/23/18 15:00 09/23/18 15:00 Intake and Output: 09/23/18 09/23/18 06:59 18:59 Intake Total 300 300 Balance 300 300 - Medications Medications: Current Medications Amlodipine Besylate (Norvasc) 10 mg PO DAILY [facility] Last Admin: 09/23/18 09:52 Dose: 10 mg Docusate Sodium (Colace) 100 mg PO BID [facility] Last Admin: 09/23/18 18:05 Dose: 100 mg Enoxaparin Sodium (Lovenox) 40 mg SC DAILY [facility] Last Admin: 09/23/18 09:51 Dose: 40 mg Insulin Aspart (Novolog) 0 unit SC [facility]; Protocol Last Admin: 09/23/18 16:28 Dose: 2 units Levetiracetam (Keppra) 500 mg PO BID [facility] Last Admin: 09/23/18 18:05 Dose: 500 mg Losartan Potassium (Cozaar) 100 mg PO DAILY [facility] Last Admin: 09/23/18 09:52 Dose: [facility] Last Admin: 09/23/18 18:06 Dose: 500 mg - Labs Labs: 09/23/18 07:20 09/23/18 07:20 PT 12.1 SECONDS (9.7-12.2) 09/23/18 07:20 INR 1.1 09/23/18 07:20 APTT 38 SECONDS (21-34) H 09/20/18 22:39 - Constitutional Appears: No Acute Distress, Chronically Ill - Head Exam Head Exam: NORMAL INSPECTION - Eye Exam Eye Exam: Normal appearance Pupil Exam: NORMAL ACCOMODATION - ENT Exam ENT Exam: Normal Exam - Neck Exam Neck Exam: Normal Inspection - Respiratory Exam Respiratory Exam: Clear to Ausculation Bilateral, NORMAL BREATHING PATTERN - Cardiovascular Exam Cardiovascular Exam: REGULAR RHYTHM - GI/Abdominal Exam GI & Abdominal Exam: Soft, Normal Bowel Sounds - Rectal Exam Rectal Exam: Deferred - Extremities Exam Extremities Exam: Normal Inspection - Back Exam Back Exam: NORMAL INSPECTION - Neurological Exam Neurological Exam: Abnormal Gait, Alert, Awake, Oriented x3 - Psychiatric Exam Psychiatric exam: Anxious - Skin Skin Exam: Dry, Intact, Normal Color, Warm Assessment and Plan (1) Elevated LFTs Assessment & Plan: Improving slightly. To continue to monitor LFT's. Status: Acute (2) UTI (urinary tract infection) Assessment & Plan: To continue IV Rocephin. Status: Acute (3) Acute right arterial ischemic stroke, [employer]ENT (posterior cerebral artery) Status: Acute (4) Non-insulin dependent type 2 diabetes mellitus Status: Chronic
[2018-09-24] MEDS: (Novolog) Insulin Aspart, Recombinant 100 u/ml 10 ml vial SC SCH ×4 (07:39→21:21)
[2018-09-24 08:02] LABS: INR 1.1; PROTHROMBIN TIME 12.5 SECONDS (9.7-12.2)
[2018-09-24 08:03] LABS: BASO # 0.1 K/uL (0.0-0.2); BASO % 1.6 % (0.0-2.0); EOS # 0.2 K/uL (0.0-0.7); EOS % 2.4 % (0.0-4.0); HEMOGLOBIN 10.7 g/dL (11.0-16.0); LYMPH # 1.5 K/uL (1.0-4.3); LYMPH % 18.9 % (20.0-40.0); MEAN CELL VOLUME 87.3 fL (81.0-99.0); MEAN CORPUSCULAR HEMOGLOBIN 30.3 pg (27.0-31.0); MEAN CORPUSCULAR HGB CONC 34.7 g/dL (33.0-37.0); MEAN PLATELET VOLUME 9.5 fL (7.2-11.7); MONO # 0.9 K/uL (0.0-0.8); MONO % 11.7 % (0.0-10.0); NEUT # 5.2 K/uL (1.8-7.0); NEUT % 65.4 % (50.0-75.0); RBC 3.55 Mil/uL (3.80-5.20); RED CELL DISTRIBUTION WIDTH 16.6 % (11.5-14.5); WHITE BLOOD COUNT 7.9 K/uL (4.8-10.8)
[2018-09-24 08:19] LABS: ALB/GLOB RATIO 0.9 (1.0-2.1); ALBUMIN 3.7 g/dL (3.5-5.0); BILIRUBIN,DIRECT 2.1 mg/dL (0.0-0.4); CALCIUM 9.4 mg/dl (8.6-10.4)
[2018-09-24] MEDS: Enoxaparin 40 mg Syringe SC SCH (09:33)
--- NOTE | 2018-09-24 10:27 | CP.PCM.PN ---
Subjective - Date & Time of Evaluation Date of Evaluation: 09/24/18 Time of Evaluation: 10:23 - Subjective Subjective: Patient complains of constipation. She denies having nausea, vomiting, abdominal pain. Objective - Vital Signs/Intake and Output Vital Signs (last 24 hours): Temp Pulse Resp BP Pulse Ox 97.5 F L 83 20 157/81 H 95 09/24/18 07:00 09/24/18 07:00 09/24/18 07:00 09/24/18 07:00 09/24/18 07:00 Intake and Output: 09/24/18 09/24/18 06:59 18:59 Intake Total 300 Balance 300 - Medications Medications: Current Medications Amlodipine Besylate (Norvasc) 10 mg PO DAILY [facility] Last Admin: 09/24/18 09:33 Dose: 10 mg Docusate Sodium (Colace) 100 mg PO BID [facility] Last Admin: 09/24/18 09:33 Dose: 100 mg Enoxaparin Sodium (Lovenox) 40 mg SC DAILY [facility] Last Admin: 09/24/18 09:33 Dose: 40 mg Insulin Aspart (Novolog) 0 unit SC [facility]; Protocol Last Admin: 09/24/18 07:39 Dose: Not Given Levetiracetam (Keppra) 500 mg PO BID [facility] Last Admin: 09/24/18 09:33 Dose: 500 mg Losartan Potassium (Cozaar) 100 mg PO DAILY [facility] Last Admin: 09/24/18 09:32 Dose: [facility] Last Admin: 09/24/18 07:56 Dose: 500 mg - Labs Labs: 09/24/18 07:50 09/24/18 07:50 PT 12.5 SECONDS (9.7-12.2) H 09/24/18 07:50 INR 1.1 09/24/18 07:50 APTT 38 SECONDS (21-34) H 09/20/18 22:39 - Constitutional Appears: No Acute Distress - Head Exam Head Exam: ATRAUMATIC, NORMOCEPHALIC - Eye Exam Eye Exam: EOMI, PERRL - Neck Exam Neck Exam: absent: Lymphadenopathy, Thyromegaly - Respiratory Exam Respiratory Exam: NORMAL BREATHING PATTERN. absent: Rales, Rhonchi, Wheezes - Cardiovascular Exam Cardiovascular Exam: REGULAR RHYTHM, +S1, +S2. absent: Gallop, Rubs, Murmur - GI/Abdominal Exam GI & Abdominal Exam: Soft, Normal Bowel Sounds. absent: Tenderness, Mass, Organomegaly - Rectal Exam Rectal Exam: Deferred - Extremities Exam Extremities Exam: absent: Calf Tenderness, Pedal Edema Assessment and Plan (1) Elevated LFTs Assessment & Plan: Liver enzymes continue to improve slightly. The TBILI was 2.6 (down form 3.4 yesterday), AST 447 (617), ALT 468 (524), ALKP 1153 (1151). 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 Will continue to follow LFTs. Discharge planning. Status: Acute
--- NOTE | 2018-09-24 22:40 | CP.PCM.PN ---
Subjective - Date & Time of Evaluation Date of Evaluation: 09/24/18 Time of Evaluation: 18:30 - Subjective Subjective: Patient complaining of weakness, Afebrile, with poor appetite. Liver enzymes continue to decrease. Will send the patient back to [facility] if cleared by GI. Objective - Vital Signs/Intake and Output Vital Signs (last 24 hours): Temp Pulse Resp BP Pulse Ox 98.9 F 87 20 152/82 H 95 09/24/18 16:00 09/24/18 16:00 09/24/18 16:00 09/24/18 16:00 09/24/18 16:00 Intake and Output: 09/24/18 09/25/18 18:59 06:59 Intake Total 300 Balance 300 - Medications Medications: Current Medications Amlodipine Besylate (Norvasc) 10 mg PO DAILY [facility] Last Admin: 09/24/18 09:33 Dose: 10 mg Docusate Sodium (Colace) 100 mg PO BID [facility] Last Admin: 09/24/18 17:03 Dose: 100 mg Enoxaparin Sodium (Lovenox) 40 mg SC DAILY [facility] Last Admin: 09/24/18 09:33 Dose: 40 mg Insulin Aspart (Novolog) 0 unit SC [facility]; Protocol Last Admin: 09/24/18 21:21 Dose: Not Given Levetiracetam (Keppra) 500 mg PO BID [facility] Last Admin: 09/24/18 17:03 Dose: 500 mg Losartan Potassium (Cozaar) 100 mg PO DAILY [facility] Last Admin: 09/24/18 09:32 Dose: 100 mg [facility] Last Admin: 09/24/18 17:03 Dose: 500 mg - Labs Labs: 09/24/18 07:50 09/24/18 07:50 PT 12.5 SECONDS (9.7-12.2) H 09/24/18 07:50 INR 1.1 09/24/18 07:50 APTT 38 SECONDS (21-34) H 09/20/18 22:39 - Constitutional Appears: No Acute Distress, Chronically Ill - Head Exam Head Exam: NORMOCEPHALIC - Eye Exam Eye Exam: Normal appearance Pupil Exam: NORMAL ACCOMODATION - ENT Exam ENT Exam: Normal Exam - Neck Exam Neck Exam: Normal Inspection - Respiratory Exam Respiratory Exam: Clear to Ausculation Bilateral, NORMAL BREATHING PATTERN - Cardiovascular Exam Cardiovascular Exam: REGULAR RHYTHM - GI/Abdominal Exam GI & Abdominal Exam: Soft, Normal Bowel Sounds - Rectal Exam Rectal Exam: Deferred - Extremities Exam Extremities Exam: Full ROM, Normal Inspection Additional comments: Weakness of both legs. - Back Exam Back Exam: NORMAL INSPECTION - Neurological Exam Neurological Exam: Abnormal Gait, Alert, Awake, Oriented x3 - Psychiatric Exam Psychiatric exam: Anxious - Skin Skin Exam: Dry, Intact, Normal Color Assessment and Plan (1) Elevated LFTs Assessment & Plan: LFT's keep improving. To continue to hold Lipitor. 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
[2018-09-25 06:40] LABS: BASO # 0.1 K/uL (0.0-0.2); BASO % 0.8 % (0.0-2.0); EOS # 0.2 K/uL (0.0-0.7); EOS % 2.6 % (0.0-4.0); HEMOGLOBIN 10.3 g/dL (11.0-16.0); LYMPH # 1.6 K/uL (1.0-4.3); MEAN CELL VOLUME 87.1 fL (81.0-99.0); MEAN CORPUSCULAR HEMOGLOBIN 28.4 pg (27.0-31.0); MEAN CORPUSCULAR HGB CONC 32.5 g/dL (33.0-37.0); MONO # 0.8 K/uL (0.0-0.8); MONO % 10.5 % (0.0-10.0); NEUT # 5.2 K/uL (1.8-7.0); NEUT % 66.1 % (50.0-75.0); NRBC % 0.1 % (0.0-2.0); RBC 3.65 Mil/uL (3.80-5.20); RED CELL DISTRIBUTION WIDTH 16.6 % (11.5-14.5); WHITE BLOOD COUNT 7.8 K/uL (4.8-10.8)
[2018-09-25 06:43] LABS: INR 1.1; PROTHROMBIN TIME 12.1 SECONDS (9.7-12.2)
[2018-09-25 06:51] LABS: ALB/GLOB RATIO 0.9 (1.0-2.1); ALBUMIN 3.5 g/dL (3.5-5.0); BILIRUBIN,DIRECT 1.5 mg/dL (0.0-0.4)
[2018-09-25] MEDS: (Novolog) Insulin Aspart, Recombinant 100 u/ml 10 ml vial SC SCH ×4 (08:09→22:13)
[2018-09-25] MEDS: Enoxaparin 40 mg Syringe SC SCH (10:06)
--- NOTE | 2018-09-25 10:26 | CP.PCM.PN ---
Subjective - Date & Time of Evaluation Date of Evaluation: 09/25/18 Time of Evaluation: 10:24 - Subjective Subjective: Patient denies having nausea, vomiting, abdominal pain. The transaminases continue to decrease, though the ALKP increased since yesterday: AST 363, ALT 399, ALKP 1306, TBILI 2.0. Objective - Vital Signs/Intake and Output Vital Signs (last 24 hours): Temp Pulse Resp BP Pulse Ox 98.9 F 88 20 151/90 H 96 09/25/18 08:02 09/25/18 08:02 09/25/18 08:02 09/25/18 08:02 09/25/18 08:02 - Medications Medications: Current Medications Amlodipine Besylate (Norvasc) 10 mg PO DAILY [facility] Last Admin: 09/25/18 10:06 Dose: 10 mg Docusate Sodium (Colace) 100 mg PO BID [facility] Last Admin: 09/25/18 10:06 Dose: 100 mg Enoxaparin Sodium (Lovenox) 40 mg SC DAILY [facility] Last Admin: 09/25/18 10:06 Dose: 40 mg Insulin Aspart (Novolog) 0 unit SC [facility]; Protocol Last Admin: 09/25/18 08:09 Dose: Not Given Levetiracetam (Keppra) 500 mg PO BID [facility] Last Admin: 09/25/18 10:06 Dose: 500 mg Losartan Potassium (Cozaar) 100 mg PO DAILY [facility] Last Admin: 09/25/18 10:06 Dose: 100 mg [facility] Last Admin: 09/25/18 08:25 Dose: 500 mg - Labs Labs: 09/25/18 06:20 09/25/18 06:20 PT 12.1 SECONDS (9.7-12.2) 09/25/18 06:20 INR 1.1 09/25/18 06:20 APTT 38 SECONDS (21-34) H 09/20/18 22:39 - Constitutional Appears: No Acute Distress - Head Exam Head Exam: ATRAUMATIC, NORMOCEPHALIC - Neck Exam Neck Exam: absent: Lymphadenopathy, Thyromegaly - Respiratory Exam Respiratory Exam: NORMAL BREATHING PATTERN. absent: Rales, Rhonchi, Wheezes - Cardiovascular Exam Cardiovascular Exam: REGULAR RHYTHM, +S1, +S2. absent: Gallop, Rubs, Murmur - GI/Abdominal Exam GI & Abdominal Exam: Soft, Normal Bowel Sounds. 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 Will order MRCP. Status: Acute
--- NOTE | 2018-09-25 23:37 | CP.PCM.PN ---
Subjective - Date & Time of Evaluation Date of Evaluation: 09/25/18 Time of Evaluation: 20:00 - Subjective Subjective: Patient has no additional complaint, still has leg weakness, but no abdominal pain, nausea, diarrhea. LFT's continue to decline. MRCP ordered by Dr Toribio. Objective - Vital Signs/Intake and Output Vital Signs (last 24 hours): Temp Pulse Resp BP Pulse Ox 99.2 F 84 20 152/84 H 95 09/25/18 16:00 09/25/18 16:00 09/25/18 16:00 09/25/18 16:00 09/25/18 16:00 Intake and Output: 09/25/18 09/26/18 18:59 06:59 Intake Total 100 Balance 100 - Medications Medications: Current Medications Amlodipine Besylate (Norvasc) 10 mg PO DAILY [facility] Last Admin: 09/25/18 10:06 Dose: 10 mg Docusate Sodium (Colace) 100 mg PO BID [facility] Last Admin: 09/25/18 17:00 Dose: 100 mg Enoxaparin Sodium (Lovenox) 40 mg SC DAILY [facility] Last Admin: 09/25/18 10:06 Dose: 40 mg Insulin Aspart (Novolog) 0 unit SC [facility]; Protocol Last Admin: 09/25/18 22:13 Dose: Not Given Levetiracetam (Keppra) 500 mg PO BID [facility] Last Admin: 09/25/18 17:00 Dose: 500 mg Losartan Potassium (Cozaar) 100 mg PO DAILY [facility] Last Admin: 09/25/18 10:06 Dose: 100 mg [facility] Last Admin: 09/25/18 17:00 Dose: 500 mg - Labs Labs: 09/25/18 06:20 09/25/18 06:20 PT 12.1 SECONDS (9.7-12.2) 09/25/18 06:20 INR 1.1 09/25/18 06:20 APTT 38 SECONDS (21-34) H 09/20/18 22:39 - Constitutional Appears: Non-toxic, No Acute Distress, Chronically Ill - Head Exam Head Exam: NORMAL INSPECTION - Eye Exam Pupil Exam: NORMAL ACCOMODATION - ENT Exam ENT Exam: Normal Exam - Neck Exam Neck Exam: Normal Inspection - Respiratory Exam Respiratory Exam: Clear to Ausculation Bilateral, NORMAL BREATHING PATTERN - Cardiovascular Exam Cardiovascular Exam: REGULAR RHYTHM - GI/Abdominal Exam GI & Abdominal Exam: Soft, Normal Bowel Sounds - Rectal Exam Rectal Exam: Deferred - Extremities Exam Additional comments: Bilateral leg weakness. - Back Exam Back Exam: NORMAL INSPECTION - Neurological Exam Neurological Exam: Abnormal Gait, Alert, Awake, Oriented x3 - Psychiatric Exam Psychiatric exam: Anxious - Skin Skin Exam: Dry, Intact, Warm Assessment and Plan (1) Elevated LFTs Assessment & Plan: LFT's declining. For MRCP in AM. Status: Acute (2) UTI (urinary tract infection) Assessment & Plan: Will D/C Rocephin since urine and blood cultures are negative and the patient has been afebrile. 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
[2018-09-26 06:31] LABS: BASO # 0.1 K/uL (0.0-0.2); BASO % 0.9 % (0.0-2.0); EOS # 0.2 K/uL (0.0-0.7); HEMOGLOBIN 10.4 g/dL (11.0-16.0); LYMPH # 1.6 K/uL (1.0-4.3); MEAN CELL VOLUME 87.5 fL (81.0-99.0); MEAN CORPUSCULAR HEMOGLOBIN 29.2 pg (27.0-31.0); MEAN CORPUSCULAR HGB CONC 33.3 g/dL (33.0-37.0); MEAN PLATELET VOLUME 8.9 fL (7.2-11.7); MONO # 0.8 K/uL (0.0-0.8); MONO % 10.7 % (0.0-10.0); NEUT # 4.8 K/uL (1.8-7.0); NEUT % 64.4 % (50.0-75.0); RBC 3.55 Mil/uL (3.80-5.20); RED CELL DISTRIBUTION WIDTH 16.5 % (11.5-14.5); WHITE BLOOD COUNT 7.5 K/uL (4.8-10.8)
[2018-09-26 06:37] LABS: INR 1.1; PROTHROMBIN TIME 12.1 SECONDS (9.7-12.2)
[2018-09-26 06:51] LABS: ALB/GLOB RATIO 0.9 (1.0-2.1); ALBUMIN 3.6 g/dL (3.5-5.0); BILIRUBIN,DIRECT 1.4 mg/dL (0.0-0.4); CALCIUM 9.4 mg/dl (8.6-10.4)
[2018-09-26] MEDS: (Novolog) Insulin Aspart, Recombinant 100 u/ml 10 ml vial SC SCH ×3 (07:52→17:25)
[2018-09-26 08:09] VITALS: O2SAT 94
[2018-09-26] MEDS: Enoxaparin 40 mg Syringe SC SCH (09:52)
--- NOTE | 2018-09-26 10:50 | CP.PCM.PN ---
Subjective - Date & Time of Evaluation Date of Evaluation: 09/26/18 Time of Evaluation: 10:48 - Subjective Subjective: Patient denies having nausea, vomiting, abdominal pain. Objective - Vital Signs/Intake and Output Vital Signs (last 24 hours): Temp Pulse Resp BP Pulse Ox 98.6 F 75 20 150/88 94 L 09/26/18 08:00 09/26/18 08:00 09/26/18 08:00 09/26/18 08:00 09/26/18 08:00 Intake and Output: 09/26/18 09/26/18 06:59 18:59 Intake Total 0 Balance 0 - Medications Medications: Current Medications Amlodipine Besylate (Norvasc) 10 mg PO DAILY [facility] Last Admin: 09/26/18 09:25 Dose: Not Given Docusate Sodium (Colace) 100 mg PO BID [facility] Last Admin: 09/26/18 09:25 Dose: Not Given Enoxaparin Sodium (Lovenox) 40 mg SC DAILY [facility] Last Admin: 09/26/18 09:52 Dose: 40 mg Insulin Aspart (Novolog) 0 unit SC [facility]; Protocol Last Admin: 09/26/18 07:52 Dose: Not Given Levetiracetam (Keppra) 500 mg PO BID [facility] Last Admin: 09/26/18 09:25 Dose: Not Given Losartan Potassium (Cozaar) 100 mg PO DAILY [facility] Last Admin: 09/26/18 09:25 Dose: Not Given [facility]) [facility] Last Admin: 09/26/18 07:52 Dose: Not Given - Labs Labs: 09/26/18 06:12 09/26/18 06:12 PT 12.1 SECONDS (9.7-12.2) 09/26/18 06:12 INR 1.1 09/26/18 06:12 APTT 38 SECONDS (21-34) H 09/20/18 22:39 - Constitutional Appears: No Acute Distress - Head Exam Head Exam: ATRAUMATIC, NORMOCEPHALIC - Eye Exam Eye Exam: EOMI - Neck Exam Neck Exam: absent: Lymphadenopathy, Thyromegaly - Respiratory Exam Respiratory Exam: NORMAL BREATHING PATTERN. absent: Rales, Rhonchi, Wheezes - Cardiovascular Exam Cardiovascular Exam: REGULAR RHYTHM, +S1, +S2. absent: Gallop, Rubs, Murmur - GI/Abdominal Exam GI & Abdominal Exam: Soft, Normal Bowel Sounds. absent: Tenderness, Mass, Or ganomegaly - Rectal Exam Rectal Exam: Deferred - Extremities Exam Extremities Exam: absent: Calf Tenderness, Pedal Edema Assessment and Plan (1) Elevated LFTs Assessment & Plan: Liver enzymes continue to improve steadily with the exception of ALKP: TBILI 1.7 (was 2.0 yesterday), AST 281 (363), ALT 348 (399), ALKP 1255 (1306). Anti mitochondrial antibody is negative. MRCP is pending. If MRCP shows no abnormalities of the bile duct, patient may be discharged back to rehab. LFTs should be checked in one week. Status: Acute
--- NOTE | 2018-09-26 13:47 | MRI ---
MRI abdomen without IV contrast Indication: Elevated alkaline phosphatase, biliary obstruction Technique: Multiplanar, multi sequence magnetic resonance images of the abdomen were obtained without the administration of intravenous gadolinium. A total of 393 images submitted for review Comparison: Abdominal ultrasound performed 09/21/18, CT of the abdomen and pelvis with contrast performed 09/21/18 Findings: Examination markedly limited by respiratory/motion artifact. Cholecystectomy. Fatty atrophy of the pancreas. Hepatic steatosis. Bilateral adrenal gland hypertrophy. Noncontrast spleen appears unremarkable. No hydronephrosis identified. Limited views of the inferior thorax appear unremarkable. Degenerative changes of the spine. Impression: Markedly limited study. Fatty atrophy of the pancreas. Hepatic steatosis. Cholecystectomy.
[2018-09-26 15:49] VITALS: BP 173/83; PULSE 76; TEMP 97.9
--- NOTE | 2018-09-26 17:05 | CP.PCM.PN ---
Subjective - Date & Time of Evaluation Date of Evaluation: 09/26/18 Time of Evaluation: 17:05 - Subjective Subjective: Alert, awake, follows commands, NAD, denies pain. Objective - Vital Signs/Intake and Output Vital Signs (last 24 hours): Temp Pulse Resp BP Pulse Ox 97.9 F 76 20 173/83 H 94 L 09/26/18 15:00 09/26/18 15:00 09/26/18 15:00 09/26/18 15:00 09/26/18 15:00 Intake and Output: 09/26/18 09/26/18 06:59 18:59 Intake Total 0 Balance 0 - Medications Medications: Current Medications Amlodipine Besylate (Norvasc) 10 mg PO DAILY [facility] Last Admin: 09/26/18 09:25 Dose: Not Given Docusate Sodium (Colace) 100 mg PO BID [facility] Last Admin: 09/26/18 09:25 Dose: Not Given Enoxaparin Sodium (Lovenox) 40 mg SC DAILY [facility] Last Admin: 09/26/18 09:52 Dose: 40 mg Insulin Aspart (Novolog) 0 unit SC [facility]; Protocol Last Admin: 09/26/18 11:25 Dose: Not Given Levetiracetam (Keppra) 500 mg PO BID [facility] Last Admin: 09/26/18 09:25 Dose: Not Given Losartan Potassium (Cozaar) 100 mg PO DAILY [facility] Last Admin: 09/26/18 09:25 Dose: Not Given [facility] Last Admin: 09/26/18 07:52 Dose: Not Given - Labs Labs: 09/26/18 06:12 09/26/18 06:12 PT 12.1 SECONDS (9.7-12.2) 09/26/18 06:12 INR 1.1 09/26/18 06:12 APTT 38 SECONDS (21-34) H 09/20/18 22:39 Assessment and Plan - Assessment and Plan (Free Text) Assessment: [facility] and examined. Alert awake, no sob or abdominal pains. Liver enzymes are trending down slowly, statin has been held. MRCP done today shows no abnormalities. Discussed with DR Mercer, plan to discharge back to the rehab. The cholesterol medications disco ntinued. Advised to check the CMP in 1 week and re-evaluate.
[2018-09-29 00:09] LABS: ANCA SCREEN POSITIVE (NEGATIVE)
--- NOTE | 2018-10-01 22:49 | CP.PCM.DIS ---
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 Hospital Course - Lab Results Lab Results: Micro Results 09/21/18 20:40 Blood-Venous Blood Culture - Final NO GROWTH AFTER 5 DAYS 09/21/18 20:40 Blood-Venous Gram Stain - Final TEST NOT PERFORMED 09/21/18 20:40 Blood-Venous Blood Culture - Final NO GROWTH AFTER 5 DAYS 09/21/18 20:40 Blood-Venous Gram Stain - Final TEST NOT PERFORMED 09/21/18 21:16 Urine Random Urine Culture - Final No Growth (<1,000 CFU/ML) Most Recent Lab Values WBC 7.5 K/uL (4.8-10.8) 09/26/18 06:12 RBC 3.55 Mil/uL (3.80-5.20) L 09/26/18 06:12 Hgb 10.4 g/dL (11.0-16.0) L 09/26/18 06:12 Hct 31.1 % (34.0-47.0) L 09/26/18 06:12 MCV 87.5 fL (81.0-99.0) 09/26/18 06:12 MCH 29.2 pg (27.0-31.0) 09/26/18 06:12 MCHC 33.3 g/dL (33.0-37.0) 09/26/18 06:12 RDW 16.5 % (11.5-14.5) H 09/26/18 06:12 Plt Count 295 K/uL (130-400) 09/26/18 06:12 MPV 8.9 fL (7.2-11.7) 09/26/18 06:12 Neut % (Auto) 64.4 % (50.0-75.0) 09/26/18 06:12 Lymph % (Auto) 21.0 % (20.0-40.0) 09/26/18 06:12 Iron % (Auto) 10.7 % (0.0-10.0) H 09/26/18 06:12 Eos % (Auto) 3.0 % (0.0-4.0) 09/26/18 06:12 Baso % (Auto) 0.9 % (0.0-2.0) 09/26/18 06:12 Neut # (Auto) 4.8 K/uL (1.8-7.0) 09/26/18 06:12 Lymph # (Auto) 1.6 K/uL (1.0-4.3) 09/26/18 06:12 Iron # (Auto) 0.8 K/uL (0.0-0.8) 09/26/18 06:12 Eos # (Auto) 0.2 K/uL (0.0-0.7) 09/26/18 06:12 Baso # (Auto) 0.1 K/uL (0.0-0.2) 09/26/18 06:12 PT 12.1 SECONDS (9.7-12.2) 09/26/18 06:12 INR 1.1 09/26/18 06:12 APTT 38 SECONDS (21-34) H 09/20/18 22:39 Sodium 138 mmol/L (132-148) 09/26/18 06:12 Potassium 4.6 mmol/L (3.6-5.2) 09/26/18 06:12 Chloride 108 mmol/L (98-107) H 09/26/18 06:12 Carbon Dioxide 25 mmol/L (22-30) 09/26/18 06:12 Anion Gap 10 (10-20) 09/26/18 06:12 BUN 23 mg/dL (7-17) H 09/26/18 06:12 Creatinine 1.1 mg/dL (0.7-1.2) 09/26/18 06:12 Est GFR ( Amer) 57 09/26/18 06:12 Est GFR (Non-Af Amer) 47 09/26/18 06:12 POC Glucose (mg/dL) 194 mg/dL (65-110) H 09/26/18 16:16 Random Glucose 118 mg/dL (65-105) H 09/26/18 06:12 Calcium 9.4 mg/dl (8.6-10.4) 09/26/18 06:12 Total Bilirubin 1.7 mg/dL (0.2-1.3) H 09/26/18 06:12 Direct Bilirubin 1.4 mg/dL (0.0-0.4) H 09/26/18 06:12 GGT 1376 U/L (8-78) H 09/26/18 06:12 AST 281 U/L (14-36) H D 09/26/18 06:12 ALT 348 U/L (9-52) H 09/26/18 06:12 Alkaline Phosphatase 1255 U/L (38-126) H 09/26/18 06:12 Total Protein 7.5 g/dL (6.3-8.3) 09/26/18 06:12 Albumin 3.6 g/dL (3.5-5.0) 09/26/18 06:12 Globulin 3.9 gm/dL (2.2-3.9) 09/26/18 06:12 Albumin/Globulin Ratio 0.9 (1.0-2.1) L 09/26/18 06:12 Amylase 87 U/L (30-110) 09/20/18 22:39 Lipase 182 U/L (23-300) 09/20/18 22:39 Urine Color Karli (YELLOW) 09/21/18 08:49 Urine Clarity Hazy (Clear) 09/21/18 08:49 Urine pH 5.0 (5.0-8.0) 09/21/18 08:49 Ur Specific [place] 1.040 (1.003-1.030) H 09/21/18 08:49 Urine Protein 1+ mg/dL (NEGATIVE) H 09/21/18 08:49 Urine Glucose (UA) Normal mg/dL (Normal) 09/21/18 08:49 Urine Ketones Negative mg/dL (NEGATIVE) 09/21/18 08:49 Urine Blood Negative (NEGATIVE) 09/21/18 08:49 Urine Nitrate Negative (NEGATIVE) 09/21/18 08:49 Urine Bilirubin Negative (NEGATIVE) 09/21/18 08:49 Urine Urobilinogen 4.0 mg/dL (0.2-1.0) H 09/21/18 08:49 Ur Leukocyte Esterase 2+ Jonathan/uL (Negative) H 09/21/18 08:49 Urine WBC (Auto) 48 /hpf (0-5) H 09/21/18 08:49 Urine RBC (Auto) 3 /hpf (0-3) 09/21/18 08:49 Ur Squamous Epith Cells 14 /hpf (0-5) H 09/21/18 08:49 Urine Bacteria Rare (<OCC) 09/21/18 08:49 IgA 422 mg/dL (81-463) 09/25/18 14:12 [place] Screen Negative (Negative) 09/25/18 14:12 ANCA Screen Positive (NEGATIVE) H 09/25/18 14:12 c-ANCA Titer TNP 09/25/18 14:12 Proteinase 3 (PR3) <1.0 AI (<1.0) 09/25/18 14:12 p-ANCA Titer TNP 09/25/18 14:12 Atypical p-ANCA Titer 1:320 titer (<1:20) H 09/25/18 14:12 Myeloperoxidase Ab <1.0 AI (<1.0) 09/25/18 14:12 Anti-Mitochondrial Ab Negative (Negative) 09/22/18 07:15 Smooth Muscle Ab Titer 1:40 Titer (< 1:20) H 09/22/18 07:15 Anti-Smooth Muscle Ab Positive (Negative) H 09/22/18 07:15 Tiss Transglutamin IgG TEST NOT PERFORMED 09/25/18 14:12 Tiss Transglutamin IgA 1 U/mL 09/25/18 14:12 Celiac Disease Interp See note 09/25/18 14:12 Hepatitis A IgM Ab Negative (NEGATIVE) 09/22/18 07:15 Hep Bs Antigen Negative (NEGATIVE) 09/22/18 07:15 Hep B Core IgM Ab Negative (NEGATIVE) 09/22/18 07:15 Hepatitis C Antibody Negative (NEGATIVE) 09/22/18 07:15 HCV RNA Qual (TMA) Not detected 09/25/18 14:12 - Hospital Course Hospital Course: This is a 82 years old female who was transferred from the subacute rehabilitation [place] because she was found to have elevated liver enzymes, increasing weakness, and a low grade fever for the past few days. The patient denied any abdominal pain, any nausea, vomiting. She was recently hospitalized for an acute cerebral infarct with a left leg weakness, and she was started on Atorvastatin, in addition to Zetia. Abdominal US and CT scan of the abdomen and pelvis revealed absence of the gallbladder from previous cholecystectomy, absence of common bile duct d ilatation, fatty liver. U/A revealed 2+ lecocyte esterase. Total Bilirubin: 1.7 Direct bilirubin: 1.4 GGT: 1,376 AST: 281 ALT: 348 Alkaline phosphatase: 1,255. Lipitor and Zetia were held. The patient was started empirically on Rocephin for a UTI after blood and urine cultures were done. The patient improved gradually. Serum LFT's slowly decreased. The patient became afebrile, Urine and blood cultures did not yield any bacteria. Rocephin was stopped after 5 days. The patient was evaluated by Dr Toribio ( GI). An MRCP did not show any dilated CBD, any bile duct stones. The patient was discharge back to the subacute rehabilitation on 09/26/2018 in a stable condition. Lipitor and Zetia were discontinued. - Date & Time of H&P Date of H&P: 09/21/18 Discharge Exam - Head Exam Head Exam: ATRAUMATIC, NORMOCEPHALIC - Eye Exam Eye Exam: Normal appearance - ENT Exam ENT Exam: Normal Exam - Neck Exam Neck exam: Normal Inspection - Respiratory Exam Respiratory Exam: Clear to PA & Lateral, NORMAL BREATHING PATTERN, UNREMARKABLE - Cardiovascular Exam Cardiovascular Exam: REGULAR RHYTHM - GI/Abdominal Exam GI & Abdominal Exam: Normal Bowel Sounds, Unremarkable - Rectal Exam Rectal Exam: Deferred - Extremities Exam Extremities exam: normal inspection - Back Exam Back exam: NORMAL INSPECTION - Neurological Exam Neurological exam: Abnormal Gait, Alert, Oriented x3 - Psychiatric Exam Psychiatric exam: Anxious - Skin Skin Exam: Dry, Intact, Normal Color, Warm Discharge Plan - Follow Up Plan Condition: FAIR Disposition: REHAB FACILITY/REHAB UNIT Instructions: Dementia (DC) Referrals: Jonh Mercer MD [Staff Provider] - Clinical Quality Measures - CQM - Heart Failure Will be discharged to: [facility] Follow Up Date (must be within 7 days from discharge): 10/06/18 Follow Up Time: 14:00 - Date & Time of Discharge Summary Date of Discharge Summary: 10/01/18 Time of Discharge Summary: 22:55
== END 2018-09-26 20:15 | DRG 442 ==
LOC: C.ER 21:41 → C.3T 23:27 → OBSVTOIN 09-21 20:37
PROVIDERS: ADMIT Internal Medicine Cardiovascular Disease; ATTEND Internal Medicine Cardiovascular Disease
DX: K71.0 Toxic liver disease with cholestasis (principal); N39.0 Urinary tract infection, site not specified; K59.09 Other constipation; I50.9 Heart failure, unspecified; T42.6X5A Adverse effect of other antiepileptic and sedative-hypnotic drugs, initial encounter; T46.6X5A Adverse effect of antihyperlipidemic and antiarteriosclerotic drugs, initial encounter; I69.344 Monoplegia of lower limb following cerebral infarction affecting left non-dominant side; T46.5X5A Adverse effect of other antihypertensive drugs, initial encounter; M17.0 Bilateral primary osteoarthritis of knee; K76.0 Fatty (change of) liver, not elsewhere classified; I11.0 Hypertensive heart disease with heart failure; E11.9 Type 2 diabetes mellitus without complications; E78.00 Pure hypercholesterolemia, unspecified; F03.90 Unspecified dementia, unspecified severity, without behavioral disturbance, psychotic disturbance, mood disturbance, and anxiety; H40.9 Unspecified glaucoma; Z79.4 Long term (current) use of insulin